=== PATIENT | female | born 1975 | race Caucasian/White ===

== ENCOUNTER 2018-05-08 01:45 | Outpatient (CLI) | payer BC, SELFPAY ==
--- NOTE | 2018-05-08 09:48 | DI.US_ITS ---
SYMPTOMS/DIAGNOSIS: HEAVY BLEEDING, DYSFUNCTIONAL UTERINE BLEEDING, N93.8 PELVIC ULTRASOUND: A transabdominal and transvaginal examination was carried out. The uterus measures 10.2 cm in length, 6.3 cm in height and 6.6 cm in width with an endometrial stripe thickness of 10-20 mm. Endometrial heterogeneity is demonstrated. The ovaries were not visualized on either the transvaginal or transabdominal examination. Note is made of a number of small Nabothian cysts which could represent a small cervical fibroid. There is no evidence of free fluid in the pelvis or a mass. SUMMARY: The endometrial stripe is somewhat thickened at 10-20 mm and is heterogeneous as noted above. Given the patient's clinical status further assessment with hysteroscopy could be considered. The examination is otherwise unremarkable.
== END 2018-05-08 02:05 ==
PROVIDERS: PCP Nurse Practitioner Family; Visit Provider Nurse Practitioner Family
DX: N93.8 Other specified abnormal uterine and vaginal bleeding (principal); R93.89 Abnormal findings on diagnostic imaging of other specified body structures; N88.8 Other specified noninflammatory disorders of cervix uteri
CPT/HCPCS: 76830; 76856

== ENCOUNTER 2018-05-10 11:04 | Outpatient (REF) | payer BC, SELFPAY ==
--- NOTE | 2018-05-10 10:30 | ENDOMET_PTH ---
PATIENT: Lety Charles LOC: [facility] U#:[id number] AGE/SX: 42/F ROOM: RE05/10/[address]: Aimee Ambriz MD : 1975 BED: DIS: 05/10/2018 SPEC #: [id number] RECD: 05/10/18 12:56 STATUS: NAHUM REQ #: [id number] SEJAL: 05/10/18 10:[address]: Aimee Ambriz DEPT: Surgical Specimen RECD BY: Glenis Foster ENTERED: 05/10/18 12:57 SP TYPE: Endomet OTHR DR: HEATHER Parmar Tissues: 1 - ENDOMETRIUM BX/MOISESETTE Procedures: GROSS AND MICRO LEVEL 4 Comments: [id number]
== END 2018-05-10 11:24 ==
LOC: LBN 11:04
PROVIDERS: PCP Nurse Practitioner Family; Referring Provider Nurse Practitioner Family; Visit Provider Obstetrics & Gynecology
DX: N83.8 Other noninflammatory disorders of ovary, fallopian tube and broad ligament (principal); N93.8 Other specified abnormal uterine and vaginal bleeding
CPT/HCPCS: 88305

== ENCOUNTER 2018-11-21 14:42 | Outpatient (CLI) | payer BC, SELFPAY ==
[2018-11-21 15:12] LABS: HCT 39.5 % (36.0-46.0); HGB 13.2 g/dL (12.0-15.5)
== END 2018-11-21 15:02 ==
PROVIDERS: PCP Nurse Practitioner Family; Visit Provider Obstetrics & Gynecology
DX: N92.0 Excessive and frequent menstruation with regular cycle (principal); I10 Essential (primary) hypertension; K21.9 Gastro-esophageal reflux disease without esophagitis; E66.9 Obesity, unspecified; Z01.812 Encounter for preprocedural laboratory examination; Z01.818 Encounter for other preprocedural examination
CPT/HCPCS: 36415; 86850; 86900; 86901; 85014; 85018

== ENCOUNTER 2018-11-28 06:09 | Day surgery (SDC) | payer BC, SELFPAY ==
[2018-11-28 06:22] VITALS: BP 128/82; PULSE 73; RESP 18; TEMP 36.3; O2SAT 97
[2018-11-28] MEDS: Lactated Ringers 1,000 ML 125 ML IV ×2 (07:01→07:55)
--- NOTE | 2018-11-28 07:22 | W.PM.HP.N ---
Date of service: 11/28/18 Time of Service: 07:23 Assessment and Plan (1) Menorrhagia with regular cycle: Current visit: No Status: Chronic 43 yo G3 experiencing menorraghia and has failed medical therapy Her options have been discussed including medical and surgical options Novasure Enometrial ablation procedure has been explained, R/B/A were discussed consent signed all questions asked and answered History of Present Illness Chief Complaint: menorraghia Narrative: 43 yo complains of heavy menstrual periods. Has triaaled Mirena IUD and progesterone with insufficient improvement in heaviness of bleeding. Options both medical and surgical have been discussed with her and she would prefer to proceed with Novasure Endometrial Ablation. Review of Systems Review of Systems All systems reviewed & are unremarkable except as noted in HPI and below PFSH Medical History Essential hypertension (Chronic 12/15/17) Hyperlipidemia (Chronic) Morbidly obese (Chronic) Menorrhagia with regular cycle (Chronic 12/15/17) GERD (gastroesophageal reflux disease) (Chronic) Allergic rhinitis (Chronic 09/07/15) Lichen sclerosus et atrophicus (Inactive 03/15/13) GERD (gastroesophageal reflux disease) (Chronic) Basal cell carcinoma (Resolved) Iron deficiency anemia due to chronic blood loss (Resolved 12/15/17) Surgical History section Cholecystectomy (~2006) Ligation of fallopian tube (~2002) Family History Mother Fibrocystic disease of breast Diabetes Essential hypertension Basal cell carcinoma Father Diabetes Essential hypertension Depression Brother Asthma Maternal Grandfather Diabetes Essential hypertension Skin cancer Maternal Grandmother Diabetes Essential hypertension Melanoma Brother No problems noted. Paternal Grandfather No problems noted. Paternal Grandmother Melanoma Cancer Son Asthma Depression Brother No problems noted. Son No problems noted. 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 Pets and animals: Yes Pets and animals: cat(s) and dog(s) What type of physical activity do you participate in: walking Duration: > 90 minutes/day Frequency: daily [place]/Holiness: Bahai Special en[place] needs: No Do you feel safe at home: Yes Do you feel safe in your relationship?: Yes Female Reproductive History Menstrual control method: progestin IUCD (MIRENA LOT# [id number] EXP 09/2020) History History 3 Para 2 Hx # Term Pregnancies Multiple births Hx # Pregnancies Ectopic pregnancies AB induced Hx Number of Living Children AB spontaneous Meds Home Medications Medication Instructions Recorded Confirmed Type fluticasone propionate 50 2 spray АЛЕКСАНДР DAILY PRN #15.8 gm 02/23/18 11/21/18 Rx mcg/actuation nasal spray,suspension loratadine 10 mg tablet 10 mg PO DAILY PRN #90 tab 02/23/18 11/21/18 Rx hydrochlorothiazide 25 mg tablet 25 mg PO DAILY #90 tab 04/25/18 11/21/18 Rx omeprazole 20 mg capsule,delayed 20 mg PO DAILY PRN #90 cap 08/21/18 11/28/18 Rx release multivitamin,tx-minerals 1 cap PO DAILY 11/21/18 11/28/18 History [Multi-Vitamin HP/Minerals] ibuprofen 600 mg PO PRN PRN 11/28/18 11/28/18 History Allergies Allergy/AdvReac Type Severity Reaction Status Date / Time doxycycline Allergy Intermediate Rash Verified 11/28/18 06:27 banana AdvReac Other (See Verified 11/28/18 06:27 Comment) Exam Narrative Exam Narrative: appears well no acute discomfort Resp Effort & Inspection: normal respiratory effort Auscultation: clear to auscultation bilaterally Cardio Rate: regular rate Rhythm: regular rhythm Heart Sounds: S1 normal and S2 normal GI Inspection: normal to inspection Palpation: soft External Female Exam: external appearance normal Speculum Exam - Vagina: normal appearance of the vagina Speculum Exam - Cervix: normal appearance of the cervix Bimanual Exam- Vagina & Uterus: normal bimanual exam Bimanual Exam- Adnexa, other: normal adnexae Results Last Vital Signs Temp 36.3 C L 11/28/18 06:22 Pulse 73 11/28/18 06:22 Resp 18 11/28/18 06:22 BP 128/82 11/28/18 06:22 Pulse Ox 97 11/28/18 06:22
--- NOTE | 2018-11-28 07:30 | HPE_ITS ---
Date of service: 11/28/18 Time of Service: 07:23 Assessment and Plan (1) Menorrhagia with regular cycle: Current visit: No Status: Chronic 43 yo G3 experiencing menorraghia and has failed medical therapy Her options have been discussed including medical and surgical options Novasure Enometrial ablation procedure has been explained, R/B/A were discussed consent signed all questions asked and answered History of Present Illness Chief Complaint: menorraghia Narrative: 43 yo complains of heavy menstrual p eriods. Has triaaled Mirena IUD and progesterone with insufficient improvement in heaviness of bleeding. Options both medical and surgical have been discussed with her and she would prefer to proceed with Novasure Endometrial Ablation. Review of Systems Review of Systems All systems reviewed & are unremarkable except as noted in HPI and below PFSH Medical History Essential hypertension (Chronic 12/15/17) Hyperlipidemia (Chronic) Morbidly obese (Chronic) Menorrhagia with regular cycle (Chronic 12/15/17) GERD (gastroesophageal reflux disease) (Chronic) Allergic rhinitis (Chronic 09/07/15) Lichen sclerosus et atrophicus (Inactive 03/15/13) GERD (gastroesophageal reflux disease) (Chronic) Basal cell carcinoma (Resolved) Iron deficiency anemia due to chronic blood loss (Resolved 12/15/17) Surgical History section Cholecystectomy (~2006) Ligation of fallopian tube (~2002) Family History Mother Fibrocystic disease of breast Diabetes Essential hypertension Basal cell carcinoma Father Diabetes Essential hypertension Depression Brother Asthma Maternal Grandfather Diabetes Essential hypertension Skin cancer Maternal Grandmother Diabetes Essential hypertension Melanoma Brother No problems noted. Paternal Grandfather No problems noted. Paternal Grandmother Melanoma Cancer Son Asthma Depression Brother No problems noted. Son No problems noted. 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 Pets and animals: Yes Pets and animals: cat(s) and dog(s) What type of physical activity do you participate in: walking Duration: > 90 minutes/day Frequency: daily [place]/Alevism: Baptist Special en[place] needs: No Do you feel safe at home: Yes Do you feel safe in your relationship?: Yes Female Reproductive History Menstrual control method: progestin IUCD (MIRENA LOT# [id number] EXP 09/2020) History History 3 Para 2 Hx # Term Pregnancies Multiple births Hx # Pregnancies Ectopic pregnancies AB induced Hx Number of Living Children AB spontaneous Meds Home Medications Medication Instructions Recorded Confirmed Type fluticasone propionate 50 2 spray АЛЕКСАНДР DAILY PRN #15.8 gm 02/23/18 11/21/18 Rx mcg/actuation nasal spray,suspension loratadine 10 mg tablet 10 mg PO DAILY PRN #90 tab 02/23/18 11/21/18 Rx hydrochlorothiazide 25 mg tablet 25 mg PO DAILY #90 tab 04/25/18 11/21/18 Rx omeprazole 20 mg capsule,delayed 20 mg PO DAILY PRN #90 cap 08/21/18 11/28/18 Rx release multivitamin,tx-minerals 1 cap PO DAILY 11/21/18 11/28/18 History [Multi-Vitamin HP/Minerals] ibuprofen 600 mg PO PRN PRN 11/28/18 11/28/18 History Allergies Allergy/AdvReac Type Severity Reaction Status Date / Time doxycycline Allergy Intermediate Rash Verified 11/28/18 06:27 banana AdvReac Other (See Verified 11/28/18 06:27 Comment) Exam Narrative Exam Narrative: appears well no acute discomfort Resp Effort & Inspection: normal respiratory effort Auscultation: clear to auscultation bilaterally Cardio Rate: regular rate Rhythm: regular rhythm Heart Sounds: S1 normal and S2 normal GI Inspection: normal to inspection Palpation: soft External Female Exam: external appearance normal Speculum Exam - Vagina: normal appearance of the vagina Speculum Exam - Cervix: normal appearance of the cervix Bimanual Exam- Vagina & Uterus: normal bimanual exam Bimanual Exam- Adnexa, other: normal adnexae Results Last Vital Signs Temp 36.3 C L 11/28/18 06:22 Pulse 73 11/28/18 06:22 Resp 18 11/28/18 06:22 BP 128/82 11/28/18 06:22 Pulse Ox 97 11/28/18 06:22
[2018-11-28] MEDS: Bupivacaine 0.5% Pres-Free 30 ML VIAL (07:57)
[2018-11-28] MEDS: Silver Nitrate Stick 1 EACH (08:16)
[2018-11-28 09:18] VITALS: BP 115/66; PULSE 68; RESP 16; TEMP 36; O2SAT 93
--- NOTE | 2018-11-28 09:37 | ROE_ITS ---
REPORT OF OPERATIVE PROCEDURE DATE OF PROCEDURE November 28, 2018 PREOPERATIVE DIAGNOSIS Menorrhagia. POSTOPERATIVE DIAGNOSIS Menorrhagia. PROCEDURE NovaSure Endometrial ablation. SURGEON Preethi Carson M.D. ANESTHESIA General. COMPLICATIONS None. ESTIMATED BLOOD LOSS Less than 10 cc FLUID Per Anesthesia records. FINDINGS Uterine sounding length 11 centimeters. Cervical length 5 centimeters. Cavity length 6 centimeters. C avity width 4.5 centimeters. POWER Power 149 TIME OF ABLATION 120 Seconds. PROCEDURE DESCRIPTION The patient was taken to the Operating Room, where she was properly identified. She was then placed o n the operating table in the dorsal supine position. General Anesthesia was induced without difficult y. She was then placed in the dorsal lithotomy position, prepped and draped in a normal sterile [facility] ion. A formal time-out procedure was performed, confirming the patient and procedure. She had her SCD s boots on and she emptied her bladder prior to the procedure. A bivalved speculum was placed. The cervix was visualized and grasped on the anterior lip with a sin gle-tooth tenaculum and was dilated with the Cavazos dilators. After uterine sounding length, cavity le ngth and cervical length were measured as above. It was difficult to pass the NovaSure endometrial apparatus into the uterine cavity due to a sharp an teverted uterus, therefore the Megan dilators were used to re-dilate the cervix. This allowed a strai ghter entry by the NovaSure endometrial apparatus into the uterine cavity without difficulty. The apparatus was then deployed, uterine width was measured at 4.5 cm. A uterine cavity assessment wa s performed and was adequate. A 1 minute 20 second endometrial ablation was then performed. Sponge, lap, needle and instrument count were correct. All the equipment was removed from the cervix and uterus. A small amount of Silver nitrate was applied to the cervix to achieve hemostasis. She wa s taken to the Recovery Room in stable condition. CC: [facility]
== END 2018-11-28 09:30 | disposition home or self-care (01) ==
PROVIDERS: PCP Nurse Practitioner Family; Visit Provider Obstetrics & Gynecology
PROC: (CPT 58353; principal; 2018-11-28 07:30)
DX: N92.0 Excessive and frequent menstruation with regular cycle (principal); N85.4 Malposition of uterus
CPT/HCPCS: 58353; 81025; NC; J1100; J2250; J2405; J3010

== ENCOUNTER 2019-02-25 07:00 | Outpatient (CLI) | payer BC, SELFPAY ==
[2019-02-25 12:40] LABS: Anion Gap 8.4 mmol/L (3-11); BUN 12 mg/dL (7-18); CO2 30.6 mmol/L (21.0-32.0); CREATININE 0.96 mg/dL (0.55-1.02); Calcium 9.7 mg/dL (8.5-10.1); Calculated LDL 87 mg/dL; Chloride 101 mmol/L (98-107); Cholesterol 180 mg/dL (50-200); Glucose 94 mg/dL (70-100); HDL Cholesterol 50 mg/dL (40-60); Potassium 3.9 mmol/L (3.5-5.1); Sodium 140 mmol/L (136-145); Triglyceride 217 mg/dL (30-150)
[2019-02-25 13:01] LABS: FREE T4 0.99 ng/dL (0.76-1.46)
== END 2019-02-25 07:20 ==
PROVIDERS: PCP Nurse Practitioner Family; Visit Provider Nurse Practitioner Family
DX: E78.5 Hyperlipidemia, unspecified (principal); N92.0 Excessive and frequent menstruation with regular cycle
CPT/HCPCS: 36415; 80048; 80061; 83036; 84439; 84443

== ENCOUNTER 2019-03-21 01:37 | Outpatient (CLI) | payer BC, SELFPAY ==
--- NOTE | 2019-03-21 11:58 | DI.MAMMO_ITS ---
EXAM: MG MAMMO SCREENING CLINICAL HISTORY: screening, Z12.39 TECHNIQUE: Mammograms were interpreted according to the usual protocol including computer analysis w meevl CAD system, tomosynthesis and C-view imaging. COMPARISON: 2012 FINDINGS: The breasts are composed of heterogeneously dense tissue, which may obscure small masses, breast dens ity category C. No suspicious masses or microcalcifications are seen. There has been no significant c hange when compared with the prior examinations. IMPRESSION: Category 1, negative mammogram. Yearly screening mammography is recommended. BI-RADS Cat 1 - Negative Breast Density - Category C - Heterogeneously dense
== END 2019-03-21 01:57 ==
PROVIDERS: PCP Nurse Practitioner Family; Visit Provider Nurse Practitioner Family
DX: Z12.31 Encounter for screening mammogram for malignant neoplasm of breast (principal)
CPT/HCPCS: 77063; 77067

== ENCOUNTER 2019-12-18 09:23 | Outpatient (CLI) | payer OTHER, SELFPAY ==
--- NOTE | 2019-12-18 09:00 | DI.RAD_ITS ---
EXAM: XR KNEE LT 3V AP,LAT,JUSTIN CLINICAL HISTORY: left knee pain TECHNIQUE: 2D digital imaging was performed. COMPARISON: No exams were available for comparison FINDINGS: The joint spaces are well maintained. There is spurring from the lateral patellofemoral joint. The tibial tubercle is prominent. No joint effusion is seen. IMPRESSION: Mild degenerative changes, greatest of the lateral patellofemoral joint.
== END 2019-12-18 09:43 ==
PROVIDERS: PCP Nurse Practitioner Family; Referring Provider Nurse Practitioner Family; Visit Provider Physician Assistant Surgical
DX: M25.562 Pain in left knee (principal); M17.12 Unilateral primary osteoarthritis, left knee
CPT/HCPCS: 73562

== ENCOUNTER 2020-01-13 00:39 | Outpatient (CLI) | payer OTHER, SELFPAY ==
--- NOTE | 2020-01-13 07:00 | DI.MRI_ITS ---
EXAM: MR LOWER JOINT LT WO CLINICAL HISTORY: LT KNEE PAIN,INTERNAL DERANGEMENT,M25.562,M23.92. TECHNIQUE: Multiplanar multisequence MRI was performed. COMPARISON: No exams were available for comparison FINDINGS: MR examination knee was performed according to the usual protocol. There is a small nonspecific knee joint effusion. Mild marginal osteophyte formation noted at all 3 joints of the knee. There is an apparent small ganglion cyst seen posteriorly adjacent to the popliteus mechanism which a ppears to contain tiny loose body. Extensor mechanism and patellofemoral joint: Normal appearance of the patellar and quadriceps tendons . Unremarkable appearance of the infrapatellar and suprapatellar fat pads. There is irregular cartilage thinning and/or focal tear at the patellar apex and there is marked daniela cular cartilage thinning of the lateral patellar facet. Slight trochlear irregular cartilage thinnin g associated with the patellar apex. Mildly abnormal subchondral signal in lateral patellar facet. The medial and lateral retinacula appear intact. Minimal prepatellar soft tissue edema and fluid col lection in the prepatellar bursa. Medial tibiofemoral joint: There is irregular cartilage thinning of the posteromedial aspect of the m edial femoral condyle and there is diffuse thinning of the remainder of the medial condylar articular cartilage and medial tibial articular cartilage. There is a Sola attachment tear of the posterior h orn of the medial meniscus which is nondisplaced. No significant medial collateral ligament injury s een. Small subchondral cyst noted posteriorly in medial central aspect of the tibia. Lateral tibiofemoral joint: Slight diffuse articular cartilage thinning. No lateral meniscal tear. No significant lateral collateral ligament or posterolateral corner injury. Small apparent posterior ganglion cyst with loose body seen projected adjacent to fibular head. Menisci: No evidence tear of the menisci or attachments. IMPRESSION: Degenerative articular cartilage changes involving patella, particularly at the apex and lateral face t, and the medial posterior aspect of the medial femoral condyle. Sola attachment posterior horn medial meniscal tear, nondisplaced. DATA REPOSITORY:
== END 2020-01-13 00:59 ==
PROVIDERS: PCP Nurse Practitioner Family; Visit Provider Orthopaedic Surgery
DX: M17.12 Unilateral primary osteoarthritis, left knee (principal); S83.242A Other tear of medial meniscus, current injury, left knee, initial encounter; M25.462 Effusion, left knee
CPT/HCPCS: 73721

== ENCOUNTER 2020-02-07 07:41 | Outpatient (CLI) | payer BC, SELFPAY ==
[2020-02-08 17:27] LABS: COVID-19 RT-PCR Result NEGATIVE (Negative)
== END 2020-02-07 08:01 ==
PROVIDERS: PCP Nurse Practitioner Family; Visit Provider Orthopaedic Surgery
DX: Z11.59 Encounter for screening for other viral diseases (principal); Z01.818 Encounter for other preprocedural examination
CPT/HCPCS: U0003

== ENCOUNTER 2020-02-10 06:10 | Day surgery (SDC) | payer OTHER, SELFPAY ==
[2020-02-10] VITALS (7 sets, daily range): BP systolic 104–150; BP diastolic 59–98; PULSE 86–94; RESP 15–23; TEMP 36.4–37.1; O2SAT 92–96
[2020-02-10] MEDS: Lactated Ringers 1,000 ML 80 ML IV (06:59)
[2020-02-10] MEDS: ceFAZolin 2 GM/50 ML BAG IVPB (07:34)
--- NOTE | 2020-02-10 08:47 | PDOC.DSDIS_ITS ---
Discharge Plan Disposition Patient Disposition: HOME Condition: Good Discharge Details Reason For Visit: ARTHROSCOPY L KNEE Attending Provider: Mason Whyte Primary Care Provider: Mavis Camp Home Meds and New Rx's Prescriptions: New ibuprofen 600 mg tablet 600 mg PO TID Qty: 30 RF: 0 hydrocodone-acetaminophen 5-325 mg tablet 1 tab PO Q6H PRN (Reason: pain) Qty: 10 RF: 0 Continued cetirizine 10 mg tablet 10 mg PO DAILY Qty: 90 RF: 4 mometasone 50 mcg/actuation spray,non-aerosol 2 spray АЛЕКСАНДР DAILY Qty: 17 RF: 4 zinc 50 mg tablet 50 mg PO DAILY RF: 0 cholecalciferol (vitamin D3) 50 mcg (2,000 unit) tablet 50 mcg PO DAILY RF: 0 omeprazole 20 mg capsule,delayed release(DR/EC) 20 mg PO DAILY Qty: 90 RF: 4 hydrochlorothiazide 25 mg tablet 25 mg PO DAILY Qty: 90 RF: 4 Multi-Vitamin HP/Minerals Capsule 1 cap PO DAILY RF: 0 Discontinued ibuprofen 200 mg Tablet 600 mg PO PRN PRNRF: 0 Discharge Instructions Additional Instructions: Crutches to walk. May put as much weight on L leg as your pain allows. Discontinue crutches when you can step on L leg with no pain. Elevate L leg on 1-2 pillows as much as possible for next 48 hours. Apply cryocuff to L knee continuously overnite. Tomorrow, start to use 4 times/day for 1 hour each time. Keep dressings dry and in place for 48 hours. After 48 hours, may remove dressings, shower, and get incisions wet. Leave incisions uncovered when they are dry and sealed. Begin outpatient physical therapy for rehab of L knee post-arthroscopic limited chondroplasty of patella and medial femoral condyle. Follow up with in 2 weeks. Take ibuprofen 3 times/day for 10 days to decrease swelling and inflammation. Take hydrocodone for breakthru pain, if needed. Referrals: Mason Whyte MD [ [facility] STAFF PHYSICIAN] - (f/u in 2 weeks) Equipment/Supplies: Partial Weight Bearing Crutches Activity:: Activity as Tolerated Remove Dressings/Wound Care:: 48 hours Shower/Bathe:: 48 hours Diet:: As Tolerated Discharge Orders Discharge Orders: Discharge Order (Routine); Ordered 02/10/20 Ordered By: Mason Whyte DS: Diagnosis Discharge Diagnosis (1) Internal derangement of left knee: Status: Acute
[2020-02-10] MEDS: HYDROmorphone 2 MG/ML VIAL IVP (09:22)
--- NOTE | 2020-02-10 13:32 | ROE_ITS ---
Date of service: 02/10/20 Time of Service: 08:00 Operative Note Operative Note DATE OF PROCEDURE: 02/10/20 PRE-OP DIAGNOSIS: Internal derangement left knee POST-OP DIAGNOSIS: same PROCEDURE: Arthroscopy left knee with limited chondroplasty medial femoral condyle, patella, and trochlea of the femur. SURGEON: Mason Whyte ANESTHESIA: GETA PATHOLOGY: none sent COMPLICATIONS: None Patient was transported to: PACU Patient's condition: stable Indications: The 44-year-old white female who has had continued pain with squatting and kneeling activities since she injured her knee several months ago. She was playing football in the snow planted her foot and had a twisting injury. She has had no improvement in her symptoms since that time. She is failed to respond to anti-inflammatory medications, physical therapy and time. MRI scan was obtained which suggested a possible meniscal injury and a chondral defect in the patellofemoral joint. Because of the failure to improve with conservative treatment over the course of 7 months, arthroscopic examination of her left knee was recommended to obtain a definitive diagnosis and provide a basis for definitive treatment to alleviate her symptoms. Risk and complication of procedure explained patient detail preoperatively. She was to proceed soon as possible. Procedure Description: Patient taken the operating room on 02/10/2020. She is placed about operative table and a general anesthetic was administered. The left thigh was placed in the arthroscopic leg mahan and the left knee was pr epped and draped free in usual sterile fashion. She received 2 g of Ancef IV prior to any incisions. The knee was inflated with a 50 cc of normal saline solution. Arthroscopic portals were established. The knee was then inflated with a arthroscopy pump and routine. Examination proceeded. Intraoperative photographs were obtained to document findings. Upon entering the medial compartment appeared the medial meniscus was not damaged. She did have some grade II chondromalacia on the medial femoral condyle, weightbearing portion. Through an anteromedial portal a right angle probe was introduced in the medial compartment. The medial meniscus was thoroughly probed under direct vision. No occult tears were identified. The area of chondromalacia was probed with a right angle probe was found to be partial-thickness. It was mostly grade 2. The 90 degree ArthroCare high radiofrequency electrocautery device was then used to debride the loose articular cartilage down to stable cartilage. Intercondylar notch showed intact anterior and posterior cruciate ligaments. Lateral compartment showed a normal lateral meniscus that was thoroughly stable to probing on direct vision. Articular cartilage in lateral compartment was normal and undamaged. Medial gutter was somewhat obscured by soft tissue and some hypertrophic synovium. He however to fix electrocautery wand was used to debride the hypertrophic synovium. There was a medial patella plica present did not appear to be pathologic. The plica was resected with a high radiofrequency electrocautery wand, restoring the normal volume in the medial gutter. Suprapatellar pouch was mostly clear with some mild synovial hypertrophy present. 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 There also was some grade II-III chondromalacia of the trochlea. Using a hybrid fix electrocautery wand the loose articular cartilage on the patella was debrided to stable margins. I then debrided the loose articular cartilage from the trochlea back to stable margins as well. Patella tracking look good. The knee was then thoroughly irrigated with normal saline solution using arthroscopy pump. Was irrigated till the outflow was clear. All instruments removed from the knee. Arthroscopy portals were infiltrated 0.5% Marcaine with epinephrine solution and approximated with interrupted 4 nylon sutures. Through a suprapatellar puncture I instilled into the left knee 20 cc of 0.5% Marcaine with epinephrine solution for postoperative analgesia. Incisions were dressed with Xeroform gauze sterile gauze 4 x 4's ABD pads and wrapped with 6 inch Vinnie bandages for light pressure dressing. Patient tolerated procedure well her anesthesia was reversed without complication. She was discharged to recovery room in good condition. Patient was later discharged home from the surgery unit and fully recovered from her general anesthesia. She is given instructions to use crutches to walk weightbearing as tolerated to the left leg. She may discontinue the crutches which she can step on her left leg without pain. She is instructed to try to elevate her left leg on 1 2 pillows much as possible for the next 48 hours. She is to keep her dressings dry for 48 hours. After 48 hours she can remove her dressings, shower and get her incisions wet. She may leave her incisions uncovered when they are dry and sealed. She is given a prescription of ibuprofen 600 mg p.o. 3 times daily for 10 days to help decrease swelling and inflammation. She is given a prescription of hydrocodone with APAP 5/325, 1 tablet p.o. every 6 hours as needed for breakthrough pain. She is referred to physical therapy for rehab of her left knee post-arthroscopic limited chondroplasty later this week. She should follow-up with Dr. Whyte in 2 weeks.
== END 2020-02-10 11:23 | disposition home or self-care (01) ==
PROVIDERS: PCP Nurse Practitioner Family; Visit Provider Orthopaedic Surgery
PROC: (CPT 29870; principal; 2020-02-10 07:30)
DX: M94.262 Chondromalacia, left knee (principal); M22.42 Chondromalacia patellae, left knee; M67.52 Plica syndrome, left knee
CPT/HCPCS: 29877; 81025; E0114; J0690; J1100; J1885; J2001; J2250; J2405

== ENCOUNTER 2020-05-21 06:17 | Emergency (ER) | payer BC, SELFPAY ==
[2020-05-21 06:21] VITALS: BP 141/96; PULSE 102; RESP 20; TEMP 36.6; O2SAT 97
--- NOTE | 2020-05-21 06:27 | ED.GENADUL_ITS ---
Discharge Plan Disposition Patient Disposition: HOME Condition: Stable Discharge Details Clinical Impression: Acute left flank pain, Hepatic steatosis Primary Care Provider: Mavis Camp ED Provider: Yusuf Roca Home Meds and New Rx's Prescriptions: Continued losartan 25 mg tablet 25 mg PO DAILY Qty: 90 RF: 4 hydrochlorothiazide 25 mg tablet 25 mg PO DAILY Qty: 90 RF: 4 omeprazole 20 mg capsule,delayed release(DR/EC) 20 mg PO DAILY Qty: 90 RF: 4 cetirizine 10 mg tablet 10 mg PO DAILY Qty: 90 RF: 4 cholecalciferol (vitamin D3) 50 mcg (2,000 unit) tablet 50 mcg PO DAILY RF: 0 mometasone 50 mcg/actuation spray,non-aerosol 2 spray АЛЕКСАНДР DAILY Qty: 17 RF: 4 Multi-Vitamin HP/Minerals Capsule 1 cap PO DAILY RF: 0 ibuprofen 600 mg tablet 600 mg PO TID Qty: 30 RF: 0 Discharge Instructions Instructions: Non-Alcoholic Fatty Liver Disease (ED), Abdominal Pain (ED) Additional Instructions: Your CT imaging revealed streaking of the mesentery of your upper abdomen and hepatic steatosis (fatty liver). Nonspecific inflammatory blood level (CRP) was elevated. Please follow-up with your primary care physician and rheumatology - . Call for an appointment. Return to the ER immediately for any worsening or new concerning symptoms. Referrals: Mavis Camp, KENIA [Primary Care Provider] - Discharge Data Discharge Date/Time-TO BE ENTERED AT DEPARTURE: 05/21/20 11:10 Medical Decision Making <Tesfaye Hatch DO - Last Filed: 05/21/20 07:58> 44-year-old female with a past medical history of cholecystectomy, C- section, GERD, presents today for evaluation of left flank pain. Pain is been present for the last 3 days, slightly improved with Tylenol and Motrin but it is not otherwise gone away. She does note some difficulty urinating and admits to slight worsening of her pain with urination. She denies any hematuria. She denies any radiation to the groin. Symptoms are not changed by food. She denies vomiting or diarrhea. She denies fever or chills. No other complaints at this time. No history of kidney stones. She did see Dr. Mosley yesterday, she was scheduled for a UA and CT scan today, however the pain increased and she came to the ER for further assessment. Physical exam demonstrates a nontender abdomen, no reproducibility of pain on the left flank with percussion. Symptoms are concerning for urolithiasis, we will expedite the CT scan and UA. Will treat pain with morphine at this time as she did take ibuprofen 1 hour ago. 7:50 AM Patient is feeling much better, CBC and comprehensive metabolic panel are normal, renal function unremarkable. Pending UA results at this time. CT scan results have returned, and there is no evidence of acute etiology noted per radiology, no signs of active kidney stone, there is a small phlebolith near the distal left ureter, there is some proximal left nephrolithiasis, but no ureteral calculus. There is an atypical retroperitoneal inflammatory component noted at the origin of the celiac trunk and superior mesenteric artery, but no associated lymphadenopathy is noted. No other significant abnormality. Uncertain as to what the etiology of this is, however differential does certainly lend to notably benign process versus less likely vasculitis. We will add lipase ESR and CRP. Patient feeling much better at this time, and she definitely appears stable. Case will be signed out to my colleague Dr. Yusuf Roca for follow-up on ESR CRP and lipase, however that being said unless there is a significant abnormality noted I do feel that the patient is stable for discharge with close follow-up with PCP on an outpatient basis. Clinically the patient continues to demonstrate a notably stable nontender nonsurgical abdomen clinically inconsistent with ischemic gut or mesenteric ischemia. FINDINGS: Lungs: Minimal dependent basilar atelectasis. Liver: Hepatomegaly. Fatty Infiltration. Liver incompletely visualized. No mass. Gallbladder and bile ducts: Surgical clips from prior cholecystectomy. Pancreas: No enlargement. No mass. No ductal dilatation. Spleen: Normal size. No mass. Adrenal glands: No mass. No enlargement. No hemorrhage. Kidneys and ureters: Nonobstructive left nephrolithiasis. No worrisome mass. No hydronephrosis. No hydroureter or ureterolithiasis. Stomach and bowel: No significant diverticulosis or diverticulitis. No colitis. Gastric wall thickening, lack of distention versus gastritis. No outlet obstruction. Small bowel normal without mechanical obstruction or pneumatosis. Appendix: Normal appearance without acute inflammation. Intraperitoneal space: No free intraperitoneal air demonstrated. No significant free fluid demonstrated. Vasculature: Aorta normal caliber without aneurysm, dissection or disruption. Mild nonspecific infiltration adjacent to the origin of the celiac axis and celiac trunk and superior mesenteric artery. Nonspecific finding. No associated lymphadenopathy, fluid collection or mass. Lymph nodes: No significant lymphadenopathy demonstrated. Urinary bladder: No wall thickening, mass or calculus. Reproductive: Unremarkable uterus. Ovarian follicular changes. No dominant adnexal mass. Bones/joints: Mild degenerative changes noted throughout the spine. Soft tissues: Small uncomplicated fat containing umbilical hernia. IMPRESSION: 1. No acute findings within the abdomen or pelvis. 2. Left nephrolithiasis. No acute obstructive uropathy on either side. 3. Nonspecific retroperitoneal infiltration/inflammation near the origin of the celiac trunk and superior mesenteric artery. No associated lymphadenopathy, fluid collection or mass. 4. Hepatomegaly with diffuse fatty infiltration. Thank you for allowing us to participate in the care of your patient. Dictated and Authenticated by: Raciel Oneill MD 05/21/2020 7:37 AM Eastern Time ([place] & [place]) <Yusuf Roca MD - Last Filed: 05/22/20 08:34> Care signed out by Dr. Hatch with plan to follow-up on labs and reassess patient for disposition. Labs reviewed and CRP elevated. Normal ESR normal lipase. Initial CT imaging reviewed and radiologist recommended additional contrast-enhanced study which I feel is appropriate at this time to rule out potential vascular abnormality. CTA of the abdomen pelvis with arterial and venous phase interpreted by radiology:IMPRESSION: 1. The previously described streaking anterior to the upper aorta is again noted but is not associated with thrombosis nor occlusion of the adjacent celiac artery and superior mesenteric artery nor of the IVC and nearby preaortic left renal vein. In addition, the superior mesenteric vein, portal vein confluence, and portal vein are demonstrated to be nicely patent on this study. There is no adenopathy. 2. Given the streaking I recommend pancreatic blood work, although the pancreas itself appears nearby but unremarkable. 3. Hepatomegaly and hepatic steatosis again noted. 4. Gallbladder is again noted be surgically absent. The biliary tree is not dilated. Results were reviewed with the patient. Patient is remained stable. Plan will be for outpatient follow-up with rheumatology given CT findings and elevated CRP. I also encouraged her to follow-up with her primary care physician and to call today to arrange appointments. Patient was instructed to return immediately for any worsening or new concerning symptoms. Lab Data Lab results reviewed: Yes I reviewed the patient's lab results. Labs: Laboratory Tests Range/Units 05/21/20 05/21/20 05/21/20 06:35 06:35 06:35 WBC (4.4-10.8) 10^3/uL 7.80 RBC (3.93-5.22) 10^6/uL 4.97 Hgb (11.2-15.7) g/dL 14.5 Hct (36.0-46.0) % 41.7 MCV (80-95) fL 83.9 MCH (27.0-33.0) pg 29.2 MCHC (32.0-36.0) % 34.8 RDW (11.7-14.6) % 12.2 Plt Count (130-400) 10^3/uL 284 MPV (8.0-11.0) fL 10.7 Immature Gran % 0.5 Neutrophils % 67.7 Lymphocytes % 22.8 Monocytes % 6.3 Eosinophils % 2.2 Basophils % 0.5 Nucleated RBC % % 0 Absolute Neutrophils (1.2-6.7) 10^3/uL 5.28 Absolute Lymphocytes (1.2-3.4) 10^3/uL 1.78 Absolute Monocytes (0.1-0.8) 10^3/uL 0.49 Absolute Eosinophils (0.0-0.7) 10^3/uL 0.17 Absolute Basophils (0.0-0.2) 10^3/uL 0.04 ESR (0-20) mm/hr Sodium (136-145) mmol/L 136 Potassium (3.5-5.1) mmol/L 3.4 L Chloride (98-107) mmol/L 99 Carbon Dioxide (21.0-32.0) mmol/L 27.6 Anion Gap (3-11) mmol/L 9.4 BUN (7-18) mg/dL 11 Creatinine (0.55-1.02) mg/dL 0.98 Estimated GFR/1.73 m2 (mL/min/1.73m2) >= 60.00 Glucose (74-106) mg/dL 144 H Calcium (8.5-10.1) mg/dL 9.4 Total Bilirubin (0.2-1.0) mg/dL 0.6 AST (15-37) U/L 22 ALT (14-59) U/L 42 Alkaline Phosphatase (46-116) U/L 84 C-Reactive Protein (0.0-0.3) mg/dL Total Protein (6.4-8.2) g/dL 8.2 Albumin (3.4-5.0) g/dL 3.9 Lipase (73-393) U/L Serum HCG, Qual Negative Urine Color (Yellow) Urine Clarity (Clear) Urine pH (5-8) Ur Specific [place] (1.005-1.025) Urine Protein (Negative) mg/dL Urine Ketones (Negative) mg/dL Urine Blood (Negative) Urine Nitrite (Negative) Urine Bilirubin (Negative) Urine Urobilinogen (Up TO 0.2) EU/dL Ur Leukocyte Esterase (Negative) Urine RBC (0-2) HPF Urine WBC (0-5) HPF Ur Epithelial Cells (Negative) HPF Urine Crystals (Negative) HPF Urine Bacteria (Negative) HPF Urine Casts (Negative) LPF Urine Mucus (Negative) Ur Culture Indicated? Urine Glucose (Negative) mg/dL Range/Units 05/21/20 05/21/20 05/21/20 06:35 06:35 07:40 WBC (4.4-10.8) 10^3/uL RBC (3.93-5.22) 10^6/uL Hgb (11.2-15.7) g/dL Hct (36.0-46.0) % MCV (80-95) fL MCH (27.0-33.0) pg MCHC (32.0-36.0) % RDW (11.7-14.6) % Plt Count (130-400) 10^3/uL MPV (8.0-11.0) fL Immature Gran % Neutrophils % Lymphocytes % Monocytes % Eosinophils % Basophils % Nucleated RBC % % Absolute Neutrophils (1.2-6.7) 10^3/uL Absolute Lymphocytes (1.2-3.4) 10^3/uL Absolute Monocytes (0.1-0.8) 10^3/uL Absolute Eosinophils (0.0-0.7) 10^3/uL Absolute Basophils (0.0-0.2) 10^3/uL ESR (0-20) mm/hr 20 Sodium (136-145) mmol/L Potassium (3.5-5.1) mmol/L Chloride (98-107) mmol/L Carbon Dioxide (21.0-32.0) mmol/L Anion Gap (3-11) mmol/L BUN (7-18) mg/dL Creatinine (0.55-1.02) mg/dL Estimated GFR/1.73 m2 (mL/min/1.73m2) Glucose (74-106) mg/dL Calcium (8.5-10.1) mg/dL Total Bilirubin (0.2-1.0) mg/dL AST (15-37) U/L ALT (14-59) U/L Alkaline Phosphatase (46-116) U/L C-Reactive Protein (0.0-0.3) mg/dL 4.35 H Total Protein (6.4-8.2) g/dL Albumin (3.4-5.0) g/dL Lipase (73-393) U/L 66 Serum HCG, Qual Urine Color (Yellow) Yellow Urine Clarity (Clear) Clear Urine pH (5-8) 6.0 Ur Specific [place] (1.005-1.025) 1.020 Urine Protein (Negative) mg/dL Negative Urine Ketones (Negative) mg/dL Negative Urine Blood (Negative) Trace-intact H Urine Nitrite (Negative) Negative Urine Bilirubin (Negative) Negative Urine Urobilinogen (Up TO 0.2) EU/dL 0.2 Ur Leukocyte Esterase (Negative) Negative Urine RBC (0-2) HPF 0-2 Urine WBC (0-5) HPF 0-2 Ur Epithelial Cells (Negative) HPF Few Urine Crystals (Negative) HPF Negative Urine Bacteria (Negative) HPF Few Urine Casts (Negative) LPF Negative Urine Mucus (Negative) Trace Ur Culture Indicated? No Urine Glucose (Negative) mg/dL Negative HPI <Tesfaye Hatch DO - Last Filed: 05/21/20 07:58> General Date/Time Provider Initiated Documentation: 05/21/20 06:20 . HPI Narrative: 44-year-old female with a past medical history of cholecystectomy, C- section, GERD, presents today for evaluation of left flank pain. Pain is been present for the last 3 days, slightly improved with Tylenol and Motrin but it is not otherwise gone away. She does note some difficulty urinating and admits to slight worsening of her pain with urination. She denies any hematuria. She denies any radiation to the groin. Symptoms are not changed by food. She denies vomiting or diarrhea. She denies fever or chills. No other complaints at this time. No history of kidney stones. She did see Dr. Mosley yesterday, she was scheduled for a UA and CT scan today, however the pain increased and she came to the ER for further assessment. Related Data Home Medications Medication Instructions Recorded Confirmed Multi-Vitamin HP/Minerals 1 cap PO DAILY 11/21/18 05/21/20 cholecalciferol (vitamin D3) 50 50 mcg PO DAILY 12/18/19 05/21/20 mcg (2,000 unit) tablet ibuprofen 600 mg PO TID #30 tab 02/10/20 05/21/20 mometasone 50 mcg/actuation nasal 2 spray АЛЕКСАНДР DAILY #17 gm 03/16/20 05/21/20 spray losartan 25 mg tablet 25 mg PO DAILY #90 tab 05/05/20 05/21/20 cetirizine 10 mg tablet 10 mg PO DAILY #90 tab 05/06/20 05/21/20 hydrochlorothiazide 25 mg tablet 25 mg PO DAILY #90 tab 05/06/20 05/21/20 omeprazole 20 mg capsule,delayed 20 mg PO DAILY #90 cap 05/06/20 05/21/20 release Previous Rx's Medication Instructions Recorded ibuprofen 600 mg PO TID #30 tab 02/10/20 mometasone 50 mcg/actuation nasal 2 spray АЛЕКСАНДР DAILY #17 gm 03/16/20 spray losartan 25 mg tablet 25 mg PO DAILY #90 tab 05/05/20 cetirizine 10 mg tablet 10 mg PO DAILY #90 tab 05/06/20 hydrochlorothiazide 25 mg tablet 25 mg PO DAILY #90 tab 05/06/20 omeprazole 20 mg capsule,delayed 20 mg PO DAILY #90 cap 05/06/20 release Allergies Allergy/AdvReac Type Severity Reaction Status Date / Time doxycycline Allergy Intermediate Rash Verified 05/04/20 09:58 banana AdvReac Other (See Verified 05/04/20 09:58 Comment) General Stated Complaint: FlankPain ROSS: 4 Review of Systems <Tesfaye Hatch DO - Last Filed: 05/21/20 07:58> All systems reviewed & are unremarkable except as noted in HPI and below PFSH <Tesfaye Hatch DO - Last Filed: 05/21/20 07:58> Medical History Allergic rhinitis Basal cell carcinoma Right Cheek Essential hypertension Flank pain GERD (gastroesophageal reflux disease) Hyperlipidemia Iron deficiency anemia due to chronic blood loss Menorrhagia with regular cycle Obesity Prediabetes Surgical History History of bilateral tubal ligation (05/11/03) History of section (05/11/03) 04/16/94 and 05/11/03 S/P endometrial ablation (11/28/18) S/P left knee arthroscopy (02/10/20) Status post cholecystectomy (~2006) Family History Mother Basal cell carcinoma Type 2 diabetes mellitus Hypertension Father Depression Type 2 diabetes mellitus Hypertension Brother Asthma Brother No problems noted. Son Asthma Depression Son No problems noted. Maternal Grandfather Skin cancer Type 2 diabetes mellitus Hypertension Maternal Grandmother Skin cancer Hypertension Type 2 diabetes mellitus Brain cancer Paternal Grandfather No problems noted. 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 Pets and animals: Yes Pets and animals: cat(s) and dog(s) Sexually active: Yes Do you think of yourself as: straight/heterosexual Current gender identity: female What is your relationship status?: How often do you talk on the phone with friends or family?: three or more times per week How often do you get together with friends or relatives?: once per week How often do you attend methodist or sabianism services?: 4 or more times per year Do you belong to any clubs or organized social groups?: no Panel score (0-1 are the most socially isolated patients): 3 What type of physical activity do you participate in: walking Duration: 60-90 minutes/day Frequency: 3-4 times per week [place]/Muslim: Restoration Special [place] needs: No Seatbelt use: sometimes Helmet use: No Drive intox or ride w/intox crew car driver: No Do you feel safe at home: Yes Do you feel safe in your relationship?: Yes Female Reproductive History Menstrual control method: permanent sterilization (BTL) History History 3 Para 2 Hx # Term Pregnancies Multiple births Hx # Pregnancies Ectopic pregnancies AB induced Hx Number of Living Children 2 AB spontaneous 1 Exam <Tesfaye Hatch DO - Last Filed: 05/21/20 07:58> Narrative Exam Narrative: 1.Const: Well-nourished, Well-developed, appearing stated age 2.Eyes: PERRL, no conjunctival injection, and symmetrical lids. 3.ENT: Atraumatic external nose and ears. Moist MM. Neck: Symmetric, trachea midline, No thyromegaly. 4.CVS: +S1/S2, No murmurs or gallops. Peripheral pulses 2+ and equal in all extremities. Brisk capillary refill in all extremities. 5.RESP: Unlabored respiratory effort. Clear to auscultation bilaterally. No wheezes rales or rhonchi 6.GI: Soft, Nontender/Nondistended, No hepatosplenomegaly. No guarding or rebound. 7.MSK: Normocephalic/Atraumatic, Extremities w/o deformity or ttp No cyanosis or clubbing, Normal movement of all extremities 8.Skin: Warm, Dry. No rashes or lesions. 9.Neuro: certified surgical assistant II-XII grossly intact. Sensation grossly intact, no focal neuro logic deficits. 10.Psych: (AAO) x3. Appropriate mood and affect Course <Tesfaye Hatch DO - Last Filed: 05/21/20 07:58> Vital Signs Vital signs: Vital Signs Temperature 36.6 C 05/21/20 06:21 Pulse 102 H 05/21/20 06:21 Respiratory Rate 20 05/21/20 06:21 Blood Pressure 141/96 H 05/21/20 06:21 Pulse Oximetry 97 05/21/20 06:21 Temperature 36.6 C 05/21/20 06:21 Temperature Source Temporal Artery Scan 05/21/20 06:21 Pulse 102 H 05/21/20 06:21 Respiratory Rate 20 05/21/20 06:21 Respiratory Effort Non-Labored 05/21/20 06:26 Blood Pressure 141/96 H 05/21/20 06:21 Blood Pressure Position Sitting 05/21/20 06:21 Pulse Oximetry 97 05/21/20 06:21 Pain Level 6 05/21/20 06:21 Sign Out <Tesfaye Hatch DO - Last Filed: 05/21/20 07:58> Sign Out Data: Sign Out Comment: Follow-up on ESR, CRP, lipase, and urine micro. Expectant discharge home. Last updated by Tesfaye Hatch DO at 05/21/20 07:51
[2020-05-21] MEDS: Normal Saline 1,000 ML 1000 ML IV (06:42)
[2020-05-21 06:56] LABS: Abs Immature Grans 0.04 10^3/uL (0.0-0.06); Absolute Basophil Count 0.04 10^3/uL (0.0-0.2); Absolute Eosinophil Count 0.17 10^3/uL (0.0-0.7); Absolute Lymphocyte Count 1.78 10^3/uL (1.2-3.4); Absolute Monocyte Count 0.49 10^3/uL (0.1-0.8); Absolute Neutrophil Count 5.28 10^3/uL (1.2-6.7); Basophils % 0.5; Eosinophils % 2.2; HCT 41.7 % (36.0-46.0); HGB 14.5 g/dL (11.2-15.7); Immature Grans % 0.5; Lymphocytes % 22.8; MCH 29.2 pg (27.0-33.0); MCHC 34.8 % (32.0-36.0); MCV 83.9 fL (80-95); MPV 10.7 fL (8.0-11.0); Monocytes % 6.3; Neutrophils % 67.7; Nucleated RBC 0 %; Platelet Count 284 10^3/uL (130-400); RBC 4.97 10^6/uL (3.93-5.22); RDW 12.2 % (11.7-14.6); RDW-SD 37.2 fL
[2020-05-21 07:10] LABS: ALT 42 U/L (14-59); AST 22 U/L (15-37); Albumin 3.9 g/dL (3.4-5.0); Alkaline Phosphatase 84 U/L (46-116); Anion Gap 9.4 mmol/L (3-11); BUN 11 mg/dL (7-18); Bilirubin, Total 0.6 mg/dL (0.2-1.0); CO2 27.6 mmol/L (21.0-32.0); CREATININE 0.98 mg/dL (0.55-1.02); Calcium 9.4 mg/dL (8.5-10.1); Chloride 99 mmol/L (98-107); Glucose 144 mg/dL (74-106); HCG Qual (Serum) Negative; Potassium 3.4 mmol/L (3.5-5.1); Sodium 136 mmol/L (136-145); Total Protein 8.2 g/dL (6.4-8.2)
--- NOTE | 2020-05-21 07:21 | DI.CT_ITS ---
EXAM: CT RENAL COLIC WO CLINICAL HISTORY: left flank pain. TECHNIQUE: Imaging Protocol: Axial computed tomography images with coronal and sagittal reformatted images were created and reviewed CONTRAST MATERIAL: Intravenous: none Oral: None COMPARISON: No exams were available for comparison FINDINGS: VISUALIZED LUNG BASES: No nodules nor pleural effusions evident. ABDOMEN: There is no ascites. LIVER: The visualized aspect of the liver is quite hypodense implying severe steatosis. No discrete focal hepatic lesions identified. Liver is slightly enlarged. GALLBLADDER/BILIARY: The gallbladder surgically absent. CBD is not dilated. PANCREAS: There is no evidence pancreatic mass nor dilatation pancreatic duct. SPLEEN: Spleen is not enlarged. No obvious intrasplenic lesions. ADRENALS: There are no significant adrenal masses. KIDNEYS:No cysts evident. There is a nonobstructive 4 millimeter calculus in the left kidney. No oth er renal calculi nor hydronephrosis evident. No hydroureter. There are no calculi seen in the nondi stended urinary bladder.. ABDOMINAL AORTA: The abdominal aorta is not enlarged. There is no para-aortic adenopathy. However, there is abnormal streaking in the fat anterior to the upper abdominal aorta at both the GRACIELA E Actiq and SMA levels, not associated with masses nor fluid collection at this level nor obvious abnormality in the pancreas. ABDOMINAL WALL/GI: No evidence of significant anterior abdominal wall hernia. No ischemic appearing bowel loops. No bowel obstruction nor free air nor abscess evident. PELVIS: LYMPH NODES: There is no intrapelvic nor inguinal adenopathy. GI: No evidence of appendicitis.No evidence of sigmoid diverticulitis. URINARY BLADDER: No calculi nor obvious masses evident REPRODUCTIVE: Uterus and at adnexal rib regions appear age-appropriate. There is no free fluid in th e pelvis. OSSEOUS: No significant osseous lesions. IMPRESSION: 1. Solitary nonobstructive 4 millimeter calculus in the left kidney. No hydronephrosis nor hydrouret er. No calculi in the urinary bladder. 2. Hepatic steatosis. Gallbladder surgically absent. The biliary tree is not dilated. 3. There is nonspecific streaking in the fat tissue anterior to the aorta at the celiac trunk and sup erior mesenteric artery level. There is no associated true lymphadenopathy nor fluid collection or m ass in this region. Recommend follow-up CT scan with IV contrast both arterial and venous phase. RADIATION DOSE DELIVERED: 956.26mGy.cm Total DLP DATA REPOSITORY: All CT scans at this facility are submitted to the National Radiology Data Registry (NRDR) Dose Index Registry (DIR) with the [employer] (ACR). RADIATION OPTIMIZATION: All CT scans at this facility use at least one of these dose optimization te chniques: automated exposure control; mA and/or kV adjustment per patient size (includes targeted exa ms where dose is matched to clinical indication); or iterative reconstruction.
--- NOTE | 2020-05-21 07:37 | DI.VRAD_ITS ---
Addendum created by Raciel Oneill MD on 05/21/2020 7:44:53 AM EST: Findings were discussed with PARAG STRONG at 05/21/2020 7:44 AM EST. Initial report created on 05/21/2020 7:37:03 AM EST: PROCEDURE INFORMATION: Exam: CT Abdomen And Pelvis Without Contrast Exam date and time: 05/21/2020 7:18 AM Age: 44 years old Clinical indication: Other: Left flank pain TECHNIQUE: Imaging protocol: Computed tomography of the abdomen and pelvis without contrast. Radiation optimization: All CT scans at this facility use at least one of these dose optimization techniques: automated exposure control; mA and/or kV adjustment per patient size (includes targeted exams where dose is matched to clinical indication); or iterative reconstruction. COMPARISON: US PELVIS TRANSVAGINAL 05/08/2018 4:44 PM FINDINGS: Lungs: Minimal dependent basilar atelectasis. Liver: Hepatomegaly. Fatty Infiltration. Liver incompletely visualized. No mass. Gallbladder and bile ducts: Surgical clips from prior cholecystectomy. Pancreas: No enlargement. No mass. No ductal dilatation. Spleen: Normal size. No mass. Adrenal glands: No mass. No enlargement. No hemorrhage. Kidneys and ureters: Nonobstructive left nephrolithiasis. No worrisome mass. No hydronephrosis. No hydroureter or ureterolithiasis. Stomach and bowel: No significant diverticulosis or diverticulitis. No colitis. Gastric wall thickening, lack of distention versus gastritis. No outlet obstruction. Small bowel normal without mechanical obstruction or pneumatosis. Appendix: Normal appearance without acute inflammation. Intraperitoneal space: No free intraperitoneal air demonstrated. No significant free fluid demonstrated. Vasculature: Aorta normal caliber without aneurysm, dissection or disruption. Mild nonspecific infiltration adjacent to the origin of the celiac axis and celiac trunk and superior mesenteric artery. Nonspecific finding. No associated lymphadenopathy, fluid collection or mass. Lymph nodes: No significant lymphadenopathy demonstrated. Urinary bladder: No wall thickening, mass or calculus. Reproductive: Unremarkable uterus. Ovarian follicular changes. No dominant adnexal mass. Bones/joints: Mild degenerative changes noted throughout the spine. Soft tissues: Small uncomplicated fat containing umbilical hernia. IMPRESSION: 1. No acute findings within the abdomen or pelvis. 2. Left nephrolithiasis. No acute obstructive uropathy on either side. 3. Nonspecific retroperitoneal infiltration/inflammation near the origin of the celiac trunk and superior mesenteric artery. No associated lymphadenopathy, fluid collection or mass. 4. Hepatomegaly with diffuse fatty infiltration. Dictated and Authenticated by: Raciel Oneill MD. Ordering:KASSI Carlin MD
[2020-05-21 07:47] LABS: Bilirubin Negative (Negative); Blood Trace-intact (Negative); Clarity Clear (Clear); Glucose Negative (Negative); Ketones Negative (Negative); Leukocyte Esterase Negative (Negative); Nitrite Negative (Negative); Urobilinogen 0.2 EU/dL (Up TO 0.2)
[2020-05-21 07:59] LABS: Bacteria Few HPF (Negative); C & S Indicated? No; Casts Negative LPF (Negative); Crystals Negative HPF (Negative); Epithelial Cells Few HPF (Negative); Mucus Trace (Negative); RBC 0-2 HPF (0-2); WBC 0-2 HPF (0-5)
[2020-05-21 08:02] LABS: C-Reactive Protein 4.35 mg/dL (0.0-0.3); Lipase 66 U/L (73-393)
[2020-05-21 08:21] VITALS: BP 113/57; PULSE 87; RESP 16; TEMP 36.8; O2SAT 95
[2020-05-21 08:29] LABS: ESR 20 mm/hr (0-20)
--- NOTE | 2020-05-21 09:55 | DI.CT_ITS ---
EXAM: CT ABDOMEN PELVIS W CLINICAL HISTORY: flank pain, noncontrast CT vasc finding, crp up. TECHNIQUE: Imaging Protocol: Axial computed tomography images with coronal and sagittal reformatted images were created and reviewed CONTRAST MATERIAL: Intravenous: Omnipaque 100cc Oral: None COMPARISON: CT CT RENAL COLIC WO from 05/21/2020 FINDINGS: VISUALIZED LUNG BASES: Mild atelectasis or early infiltrate noted posteriorly in both lower lobes on the uppermost images of this study. This is slightly more prominent on the right side. No associate d pleural effusions.. ABDOMEN: There is no ascites. The previously described streaking anterior to the upper abdominal aorta again noted. This contrast infused study reveals the celiac artery and its branches to be patent and the s uperior mesenteric artery also to be patent as well as no evidence of thrombosis within superior mese nteric vein, portal vein confluence and main portal vein and the splenic vein is also demonstrated to be nicely patent. There is no significant atherosclerotic disease in the abdominal aorta and the in ferior mesenteric artery is patent. There no ischemic appearing bowel loops. LIVER: Hepatomegaly and hepatic steatosis again noted. No discrete focal hepatic lesions. GALLBLADDER/BILIARY: Gallbladder is again noted be surgically absent. CBD is not dilated. PANCREAS: No evidence of pancreatic mass nor dilatation of the pancreatic duct keep. The above descr ibed streaking is behind the neck of the pancreas and just above the uncinate process but is doubtful originating from the pancreas. Nevertheless, recommend checking appropriate lipases and other pancr eatic blood work. SPLEEN: Spleen is not enlarged. No obvious intrasplenic lesions. Splenic and portal veins are paten t. ADRENALS: There are no significant adrenal masses. KIDNEYS:No cysts evident. No solid renal masses. Small nonobstructive 3-4 millimeter calculus in the left kidney is again noted. No hydronephrosis nor hydroureter. No calculi in the urinary bladder.. ABDOMINAL AORTA: Abdominal aorta is not enlarged. There is no para-aortic adenopathy. ABDOMINAL WALL/GI: No evidence of significant anterior abdominal wall hernia. No bowel obstruction. PELVIS: GI: No evidence of appendicitis.No evidence of sigmoid diverticulitis. LYMPH NODES: There is no intrapelvic nor inguinal adenopathy. REPRODUCTIVE: Uterus and adnexal regions appear age-appropriate. There is no free fluid in the pelvi s URINARY BLADDER: No calculi nor obvious masses evident OSSEOUS: No significant osseous lesions. IMPRESSION: 1. The previously described streaking anterior to the upper aorta is again noted but is not associate d with thrombosis nor occlusion of the adjacent celiac artery and superior mesenteric artery nor of t he IVC and nearby preaortic left renal vein. In addition, the superior mesenteric vein, portal vein confluence, and portal vein are demonstrated to be nicely patent on this study. There is no adenopat hy. 2. Given the streaking I recommend pancreatic blood work, although the pancreas itself appears nearby but unremarkable. 3. Hepatomegaly and hepatic steatosis again noted. 4. Gallbladder is again noted be surgically absent. The biliary tree is not dilated. RADIATION DOSE DELIVERED: 1,321.56mGy.cm Total DLP DATA REPOSITORY: All CT scans at this facility are submitted to the National Radiology Data Registry (NRDR) Dose Index Registry (DIR) with the [employer] (ACR). RADIATION OPTIMIZATION: All CT scans at this facility use at least one of these dose optimization te chniques: automated exposure control; mA and/or kV adjustment per patient size (includes targeted exa ms where dose is matched to clinical indication); or iterative reconstruction.
[2020-05-21] MEDS: Normal Saline - Diluent 50 ML VIAL IV (10:01)
[2020-05-21] MEDS: Omnipaque 350 MG/ML 100 ML BTL IJ (10:01)
[2020-05-21 11:10] VITALS: BP 141/81; PULSE 90; RESP 16; TEMP 36.8; O2SAT 96
== END 2020-05-21 11:10 | disposition home or self-care (01) ==
PROVIDERS: Student in an Organized Health Care Education/Training Program; Emergency Provider Student in an Organized Health Care Education/Training Program; PCP Nurse Practitioner Family
DX: K76.0 Fatty (change of) liver, not elsewhere classified (principal); R10.12 Left upper quadrant pain; R79.82 Elevated C-reactive protein (CRP); I10 Essential (primary) hypertension
CPT/HCPCS: 36415; 80053; 83690; 85652; 96361; 96374; 99285; 74176; 74177; 81003; 81015; 84703; 85025; 86140; J3490

== ENCOUNTER 2020-05-25 10:16 | Outpatient (REF) | payer BC, SELFPAY ==
[2020-05-25 14:19] LABS: Bilirubin Negative (Negative); Blood Negative (Negative); Clarity Clear (Clear); Glucose Negative (Negative); Ketones Negative (Negative); Leukocyte Esterase Negative (Negative); Nitrite Negative (Negative); Specific Gravity >= 1.030 (1.005-1.025); Urobilinogen 0.2 EU/dL (Up TO 0.2)
== END 2020-05-25 10:36 ==
LOC: LBN 10:16
PROVIDERS: PCP Nurse Practitioner Family
DX: R31.9 Hematuria, unspecified (principal)
CPT/HCPCS: 81003

== ENCOUNTER 2020-06-15 04:57 | Outpatient (CLI) | payer BC, SELFPAY ==
[2020-06-15 13:10] LABS: ALT 104 U/L (14-59); AST 38 U/L (15-37); Albumin 3.8 g/dL (3.4-5.0); Alkaline Phosphatase 95 U/L (46-116); Amylase 28 U/L (25-115); Anion Gap 7.9 mmol/L (3-11); BUN 13 mg/dL (7-18); Bilirubin, Total 0.4 mg/dL (0.2-1.0); C-Reactive Protein 0.86 mg/dL (0.0-0.3); CO2 31.1 mmol/L (21.0-32.0); CREATININE 0.89 mg/dL (0.55-1.02); Calcium 9.5 mg/dL (8.5-10.1); Chloride 101 mmol/L (98-107); Glucose 115 mg/dL (74-106); Lipase 74 U/L (73-393); Potassium 3.6 mmol/L (3.5-5.1); Sodium 140 mmol/L (136-145); Total Protein 7.3 g/dL (6.4-8.2)
[2020-06-15 13:13] LABS: Hemoglobin A1C 6.2 % (<5.7)
== END 2020-06-15 05:17 ==
PROVIDERS: PCP Nurse Practitioner Family
DX: I10 Essential (primary) hypertension; R10.12 Left upper quadrant pain; R73.03 Prediabetes; K76.0 Fatty (change of) liver, not elsewhere classified
CPT/HCPCS: 36415; 80053; 83690; 82150; 83036; 86140

== ENCOUNTER 2020-08-11 09:51 | Outpatient (CLI) | payer BC, SELFPAY ==
[2020-08-12 14:00] LABS: COVID-19 RT-PCR UVMMC Result Positive (Negative)
== END 2020-08-11 09:52 | disposition home or self-care (01) ==
PROVIDERS: PCP Nurse Practitioner Family; Visit Provider Nurse Practitioner Family
DX: Z20.822 Contact with and (suspected) exposure to COVID-19 (principal)
CPT/HCPCS: U0003

== ENCOUNTER 2020-10-05 12:25 | Outpatient (REF) | payer BC, SELFPAY ==
[2020-10-05 14:16] LABS: ALT 45 U/L (14-59); AST 24 U/L (15-37); Albumin 3.8 g/dL (3.4-5.0); Alkaline Phosphatase 75 U/L (46-116); Anion Gap 7.2 mmol/L (3-11); BUN 15 mg/dL (7-18); Bilirubin, Total 0.4 mg/dL (0.2-1.0); CO2 31.8 mmol/L (21.0-32.0); CREATININE 0.8 mg/dL (0.55-1.02); Calcium 9.4 mg/dL (8.5-10.1); Chloride 102 mmol/L (98-107); Glucose 125 mg/dL (74-106); Potassium 3.8 mmol/L (3.5-5.1); Sodium 141 mmol/L (136-145); Total Protein 7.6 g/dL (6.4-8.2)
[2020-10-05 14:19] LABS: Hemoglobin A1C 6.3 % (<5.7)
== END 2020-10-05 12:26 | disposition home or self-care (01) ==
LOC: LBN 12:25
PROVIDERS: PCP Nurse Practitioner Family; Visit Provider Nurse Practitioner Family
DX: K76.0 Fatty (change of) liver, not elsewhere classified (principal); K75.81 Nonalcoholic steatohepatitis (NASH); R73.03 Prediabetes
CPT/HCPCS: 80053; 83036; 86140

== ENCOUNTER 2021-01-04 00:20 | Emergency (ER) | payer BC, SELFPAY ==
--- NOTE | 2021-01-04 00:15 | DI.CT_ITS ---
Exam(s) CT RENAL COLIC WO EXAM: CT RENAL COLIC WO CLINICAL HISTORY: left flank pain. TECHNIQUE: Imaging Protocol: Axial computed tomography images with coronal and sagittal reformatted images were created and reviewed CONTRAST MATERIAL: Intravenous: none Oral: None COMPARISON: CT CT ABDOMEN PELVIS W from 05/21/2020 FINDINGS: VISUALIZED LUNG BASES: No nodules nor pleural effusions evident. ABDOMEN: There is no ascites. LIVER: Liver is quite hypodense, implying severe steatosis, previously present. There are no discret e focal hepatic lesions identified. GALLBLADDER/BILIARY: Gallbladder is again noted be surgically absent. CBD is not dilated. PANCREAS: No evidence of pancreatic mass nor dilatation of the pancreatic duct. SPLEEN: Spleen is not enlarged. No obvious intrasplenic lesions. ADRENALS: There are no significant adrenal masses. KIDNEYS:The right kidney appears unremarkable. There is mild hydronephrosis and hydroureter on the l eft side. There are phleboliths again noted in both sides of the perineum. There are no radiopaque calculi evident in the urinary bladder but there does appear to be a 3-4 millimeter calculus in the u rethra which was not evident on the prior CT scan. ABDOMINAL AORTA: Abdominal aorta is not enlarged. LYMPH NODES: There is no retroperitoneal nor paraaortic adenopathy. ABDOMINAL WALL: No evidence of significant anterior abdominal wall hernia. GI: There is no evidence of bowel obstruction, free air, nor abscess. PELVIS: LYMPH NODES: There is no intrapelvic nor inguinal adenopathy. GI: No evidence of appendicitis.No evidence of sigmoid diverticulitis. URINARY BLADDER: No calculi nor obvious masses evident REPRODUCTIVE: Age appropriate. OSSEOUS: No significant osseous lesions. IMPRESSION: 1. Mild unilateral dilatation of the left renal collecting system as well as left perinephric strandi ng. The culprit calculus appears to be at the level distal to the urinary bladder in the midline per ineum within the urethra. It measures 3-4 millimeters. 2. Advanced hepatic steatosis is again noted. No discrete focal hepatic lesions evident on this leticia nfused study. 3. Opposite-right kidney appears unremarkable. RADIATION DOSE DELIVERED: 1,260.53mGy.cm Total DLP DATA REPOSITORY: All CT scans at this facility are submitted to the National Radiology Data Registry (NRDR) Dose Index Registry (DIR) with the [employer] (ACR). RADIATION OPTIMIZATION: All CT scans at this facility use at least one of these dose optimization te chniques: automated exposure control; mA and/or kV adjustment per patient size (includes targeted exa ms where dose is matched to clinical indication); or iterative reconstruction.
[2021-01-04 00:25] VITALS: BP 159/116; PULSE 85; RESP 18; TEMP 36; O2SAT 96
--- NOTE | 2021-01-04 00:29 | W.ED.GENAD ---
Discharge Plan Disposition Patient Disposition: HOME Condition: Good Discharge Details Clinical Impression: Kidney stone on left side Primary Care Provider: Mavis Camp ED Provider: Tesfaye Hatch Home Meds and New Rx's Prescriptions: Continued loratadine 10 mg tablet 10 mg PO DAILY RF: 0 hydrochlorothiazide 25 mg tablet 25 mg PO DAILY Qty: 90 RF: 4 omeprazole 20 mg capsule,delayed release(DR/EC) 20 mg PO DAILY Qty: 90 RF: 4 mometasone 50 mcg/actuation spray,non-aerosol 2 spray АЛЕКСАНДР DAILY Qty: 17 RF: 4 losartan 50 mg tablet 50 mg PO DAILY Qty: 90 RF: 4 Discharge Instructions Instructions: Kidney Stones (ED) Additional Instructions: At this time it is highly likely that you have passed a kidney stone. Please drink plenty of fluids, and cranberry juice and cranberry concentrate. Please take Tylenol and Motrin as needed for pain. Please use the urine strainer to collect your kidney stone for further analysis. If you notice any worsening of your symptoms, or any new symptoms such as vomiting, diarrhea, fever, chills, shortness of breath, chest pain, numbness, weakness, or fainting , please return immediately to the emergency department for reevaluation. Please follow up with your primary care provider as soon as possible for reassessment and reevaluation. As always, it was a pleasure participating in your medical care today. Referrals: Mavis Camp, KENIA [Primary Care Provider] - Medical Decision Making 45-year-old female with a past medical history of tubal ligation, cholecystectomy, GERD, presents today for evaluation of left flank pain. Patient states that the pain began a few hours ago when she was trying to urinate. She describes it as an achy stabbing pain traveling from her left flank down to her left groin. She admits to vomiting, and mild nausea. She denies any hematochezia melena or acholic stool. She denies any hematemesis. She denies any fever or chills. No other complaints at this time. No other modifying factors. Physical exam demonstrates a nonsurgical abdomen, no reproducibility of her pain, however the pain is in the left flank going down to the groin. Differential size for kidney stone. Will treat with pain medications, fluids and get a CT renal scan. 1:[address] scan results have returned, 4 mm kidney stone noted in the urethra. Patient symptoms have notably transitioned from severe pain to complete resolution of pain. Patient feels much better and feels comfortable going home. She tolerated p.o. well. Laboratory work-up shows no evidence of significant urinary infection, white count, bandemia, or severe renal dysfunction. Creatinine slightly elevated, but otherwise stable. With the patient's improvement of her pain, likely passing the kidney stone I feel that discharge is appropriate at this time. Discussed red flags which to return. I have extensively reviewed the treatment plan and discharge instructions with the patient. I have addressed all patient concerns at this time. The patient was made aware of what symptoms to monitor for that would warrant a return to the emergency department. Discussed the plan with the patient, they demonstrate verbal understanding and agreement with our assessment and plan at this time. The documentation in this chart was dictated using [employer] dictation software. Please excuse any dictation errors. FINDINGS: Liver: There is diffuse hepatic steatosis. Gallbladder and bile ducts: The patient is status post cholecystectomy. Pancreas: Normal. No ductal dilation. Spleen: Normal. No splenomegaly. Adrenal glands: Normal. No mass. Kidneys and ureters: There is mild dilation of the left renal collecting system and perinephric stranding is noted around the left kidney. There is a 4 mm calculus seen in the midline perineum, likely passing left renal calculus. Stomach and bowel: Unremarkable. No obstruction. No mucosal thickening. Appendix: No evidence of appendicitis. Intraperitoneal space: Unremarkable. No free air. No significant fluid collection. Vasculature: Unremarkable. No abdominal aortic aneurysm. Lymph nodes: Unremarkable. No enlarged lymph nodes. Urinary bladder: Unremarkable as visualized. Reproductive: Unremarkable as visualized. Bones/joints: Unremarkable. No acute fracture. Soft tissues: Unremarkable. IMPRESSION: 1. Mild dilation of the left renal collecting system with left perinephric stranding noted. 4 mm calculus within the perineum likely represents passing calculus within the urethra. Correlate with clinical findings. 2. Hepatic steatosis. Thank you for allowing us to participate in the care of your patient. Dictated and Authenticated by: Steff Oliva MD 01/04/2021 1:24 AM Eastern Time ([place] & [place]) HPI General Date/Time Provider Initiated Documentation: 01/04/21 00:21. HPI Narrative: 45-year-old female with a past medical history of tubal ligation, cholecystectomy, GERD, presents today for evaluation of left flank pain. Patient states that the pain began a few hours ago when she was trying to urinate. She describes it as an achy stabbing pain traveling from her left flank down to her left groin. She admits to vomiting, and mild nausea. She denies any hematochezia melena or acholic stool. She denies any hematemesis. She denies any fever or chills. No other complaints at this time. No other modifying factors. Related Data Home Medications Medication Instructions Recorded Confirmed mometasone 50 mcg/actuation nasal 2 spray АЛЕКСАНДР DAILY #17 gm 03/16/20 01/04/21 spray hydrochlorothiazide 25 mg tablet 25 mg PO DAILY #90 tab 05/06/20 01/04/21 omeprazole 20 mg capsule,delayed 20 mg PO DAILY #90 cap 05/06/20 01/04/21 release loratadine 10 mg tablet 10 mg PO DAILY 10/05/20 01/04/21 losartan 50 mg tablet 50 mg PO DAILY #90 tab 10/28/20 01/04/21 Previous Rx's Medication Instructions Recorded mometasone 50 mcg/actuation nasal 2 spray АЛЕКСАНДР DAILY #17 gm 03/16/20 spray hydrochlorothiazide 25 mg tablet 25 mg PO DAILY #90 tab 05/06/20 omeprazole 20 mg capsule,delayed 20 mg PO DAILY #90 cap 05/06/20 release losartan 50 mg tablet 50 mg PO DAILY #90 tab 10/28/20 Allergies Allergy/AdvReac Type Severity Reaction Status Date / Time doxycycline Allergy Intermediate Rash Verified 01/04/21 00:29 gluten Allergy Unverified 01/04/21 00:29 banana AdvReac Other (See Verified 01/04/21 00:29 Comment) General Stated Complaint: FlankPain ROSS: 3 Review of Systems All systems reviewed & are unremarkable except as noted in HPI and below PFSH Medical History Allergic rhinitis Basal cell carcinoma Right Cheek COVID-19 virus infection Positive COVID test 08/11/20 Essential hypertension GERD (gastroesophageal reflux disease) Hepatic steatosis Hyperlipidemia Iron deficiency anemia due to chronic blood loss Menorrhagia with regular cycle Obesity Prediabetes Surgical History History of bilateral tubal ligation (05/11/03) History of section (05/11/03) 04/16/94 and 05/11/03 S/P endometrial ablation (11/28/18) S/P left knee arthroscopy (02/10/20) Status post cholecystectomy (~2006) Family History Mother Basal cell carcinoma Type 2 diabetes mellitus Hypertension Father Depression Type 2 diabetes mellitus Hypertension Brother Asthma Brother No problems noted. Son Asthma Depression Son No problems noted. Maternal Grandfather Skin cancer Type 2 diabetes mellitus Hypertension Maternal Grandmother Skin cancer Hypertension Type 2 diabetes mellitus Brain cancer Paternal Grandfather No problems noted. 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 Pets and animals: Yes Pets and animals: cat(s) and dog(s) Sexually active: Yes Do you think of yourself as: straight/heterosexual Current gender identity: female What is your relationship status?: How often do you talk on the phone with friends or family?: three or more times per week How often do you get together with friends or relatives?: once per week How often do you attend christian or rastafari services?: 4 or more times per year Do you belong to any clubs or organized social groups?: no Panel score (0-1 are the most socially isolated patients): 3 What type of physical activity do you participate in: walking Duration: 60-90 minutes/day Frequency: 3-4 times per week [place]/Pentecostalism: Restorationism Special [place] needs: No Seatbelt use: sometimes Helmet use: No Drive intox or ride w/intox bus van driver: No Do you feel safe at home: Yes Do you feel safe in your relationship?: Yes Female Reproductive History Menstrual control method: permanent sterilization (BTL) History History 3 Para 2 Hx # Term Pregnancies Multiple births Hx # Pregnancies Ectopic pregnancies AB induced Hx Number of Living Children 2 AB spontaneous 1 Exam Narrative Exam Narrative: 1.Const: Well-nourished, Well-developed, appearing stated age 2.Eyes: PERRL, no conjunctival injection, and symmetrical lids. 3.ENT: Atraumatic external nose and ears. Moist MM. Neck: Symmetric, trachea midline, No thyromegaly. 4.CVS: +S1/S2, No murmurs or gallops. Peripheral pulses 2+ and equal in all extremities. Brisk capillary refill in all extremities. 5.RESP: Unlabored respiratory effort. Clear to auscultation bilaterally. No wheezes rales or rhonchi 6.GI: Soft, Nontender/Nondistended, No hepatosplenomegaly. No guarding or rebound. Palpation of her left abdomen is the location of the pain but is not made worse with palpation. 7.MSK: Normocephalic/Atraumatic, Extremities w/o deformity or ttp No cyanosis or clubbing, Normal movement of all extremities 8.Skin: Warm, Dry. No rashes or lesions. 9.Neuro: front end assistant II-XII grossly intact. Sensation grossly intact, no focal neurologic deficits. 10.Psych: (AAO) x3. Appropriate mood and affect Course Vital Signs Vital signs: Vital Signs Temperature 36.0 C L 01/04/21 00:25 Pulse 85 01/04/21 00:25 Respiratory Rate 18 01/04/21 00:25 Blood Pressure 159/116 H 01/04/21 00:25 Pulse Oximetry 96 01/04/21 00:25 Temperature 36.0 C L 01/04/21 00:25 Pulse 85 01/04/21 00:25 Respiratory Rate 18 01/04/21 00:25 Blood Pressure 159/116 H 01/04/21 00:25 Pulse Oximetry 96 01/04/21 00:25 Pain Level 9 01/04/21 00:25
[2021-01-04] MEDS: Normal Saline 1,000 ML 1000 ML IV (00:40)
[2021-01-04] MEDS: Ondansetron 4 MG/2 ML VIAL IVP (00:41)
[2021-01-04] MEDS: Ketorolac 15 MG/ML VIAL IVP (00:42)
[2021-01-04] MEDS: MORPHine 4 MG/ML SYR IVP (00:45)
[2021-01-04 00:48] LABS: Abs Immature Grans 0.05 10^3/uL (0.0-0.06); Absolute Basophil Count 0.05 10^3/uL (0.0-0.2); Absolute Eosinophil Count 0.28 10^3/uL (0.0-0.7); Absolute Lymphocyte Count 1.77 10^3/uL (1.2-3.4); Absolute Neutrophil Count 7.64 10^3/uL (1.2-6.7); Basophils % 0.5; Eosinophils % 2.7; HGB 14.5 g/dL (11.2-15.7); Immature Grans % 0.5; MCH 28.4 pg (27.0-33.0); MCHC 33.7 % (32.0-36.0); MCV 84.3 fL (80-95); Monocytes % 5.8; Neutrophils % 73.5; Nucleated RBC 0 %; Platelet Count 303 10^3/uL (130-400); RDW 12.8 % (11.7-14.6); RDW-SD 39.1 fL; WBC 10.39 10^3/uL (4.4-10.8)
[2021-01-04 00:54] LABS: Bilirubin Negative (Negative); Blood Large (Negative); Clarity Cloudy (Clear); Glucose Negative (Negative); Ketones Negative (Negative); Leukocyte Esterase Trace (Negative); Nitrite Negative (Negative); Specific Gravity >= 1.030 (1.005-1.025); Urobilinogen 0.2 EU/dL (Up TO 0.2)
[2021-01-04 00:59] LABS: Epithelial Cells Many HPF (Negative); RBC >50 HPF (0-2)
[2021-01-04 01:00] LABS: C & S Indicated? No/Sq. Contamination
[2021-01-04 01:01] LABS: ALT 47 U/L (14-59); AST 26 U/L (15-37); Albumin 3.9 g/dL (3.4-5.0); Alkaline Phosphatase 88 U/L (46-116); Anion Gap 10.7 mmol/L (3-11); BUN 16 mg/dL (7-18); Bilirubin, Total 0.4 mg/dL (0.2-1.0); CO2 28.3 mmol/L (21.0-32.0); CREATININE 1.2 mg/dL (0.55-1.02); Calcium 9.5 mg/dL (8.5-10.1); Chloride 100 mmol/L (98-107); Estimated GFR 48.58 (mL/min/1.73m2); Glucose 172 mg/dL (74-106); Lipase 77 U/L (73-393); Potassium 3.4 mmol/L (3.5-5.1); Sodium 139 mmol/L (136-145)
--- NOTE | 2021-01-04 01:24 | DI.VRAD_ITS ---
PROCEDURE INFORMATION: Exam: CT Abdomen And Pelvis Without Contrast Exam date and time: 01/04/2021 12:29 AM Age: 45 years old Clinical indication: Left flank pain; Prior surgery; Surgery date: 6+ months; Surgery type: , tubal ligation, cholecystectomy, TECHNIQUE: Imaging protocol: Computed tomography of the abdomen and pelvis without contrast. Radiation optimization: All CT scans at this facility use at least one of these dose optimization techniques: automated exposure control; mA and/or kV adjustment per patient size (includes targeted exams where dose is matched to clinical indication); or iterative reconstruction. COMPARISON: CT ABDOMEN PELVIS W 05/21/2020 9:43 AM FINDINGS: Liver: There is diffuse hepatic steatosis. Gallbladder and bile ducts: The patient is status post cholecystectomy. Pancreas: Normal. No ductal dilation. Spleen: Normal. No splenomegaly. Adrenal glands: Normal. No mass. Kidneys and ureters: There is mild dilation of the left renal collecting system and perinephric stranding is noted around the left kidney. There is a 4 mm calculus seen in the midline perineum, likely passing left renal calculus. Stomach and bowel: Unremarkable. No obstruction. No mucosal thickening. Appendix: No evidence of appendicitis. Intraperitoneal space: Unremarkable. No free air. No significant fluid collection. Vasculature: Unremarkable. No abdominal aortic aneurysm. Lymph nodes: Unremarkable. No enlarged lymph nodes. Urinary bladder: Unremarkable as visualized. Reproductive: Unremarkable as visualized. Bones/joints: Unremarkable. No acute fracture. Soft tissues: Unremarkable. IMPRESSION: 1. Mild dilation of the left renal collecting system with left perinephric stranding noted. 4 mm calculus within the perineum likely represents passing calculus within the urethra. Correlate with clinical findings. 2. Hepatic steatosis. Dictated and Authenticated by: Steff Marroquin MD. Ordering:KASSI Carlin MD
[2021-01-04 01:44] VITALS: BP 160/77; PULSE 89; RESP 18; O2SAT 95
== END 2021-01-04 01:56 | disposition home or self-care (01) ==
PROVIDERS: Emergency Provider Student in an Organized Health Care Education/Training Program; PCP Nurse Practitioner Family
DX: N20.0 Calculus of kidney (principal); R82.71 Bacteriuria; B96.20 Unspecified Escherichia coli [E. coli] as the cause of diseases classified elsewhere
CPT/HCPCS: 36415; 80053; 83690; 87077; 96361; 96374; 96375; 99284; 74176; 81003; 81015; 85025; 87086; 87186; 99285; J1885; J2270; J2405

== ENCOUNTER 2021-08-25 10:44 | Outpatient (REF) | payer BC, SELFPAY ==
[2021-08-26 16:27] LABS: COVID-19 RT-PCR UVMMC Result Negative (Negative)
== END 2021-08-25 10:45 | disposition home or self-care (01) ==
LOC: LBN 10:44
PROVIDERS: PCP Nurse Practitioner Family; Visit Provider Family Medicine
DX: Z20.822 Contact with and (suspected) exposure to COVID-19 (principal)
CPT/HCPCS: U0003

== ENCOUNTER 2022-02-28 09:39 | Outpatient (REF) | payer BC, SELFPAY ==
--- NOTE | 2022-02-28 08:45 | PAPFT_PTH ---
PATIENT: Lety Charles LOC: [facility] U#:[id number] AGE/SX: 46/F ROOM: RE02/28/[address]: HEATHER Parmar : 1975 BED: DIS: 02/28/2022 SPEC #: [id number] RECD: 02/28/22 13:05 STATUS: NAHUM REAmy #: [id number] SEJAL: 02/28/22 08:[address]: Mavis Camp DEPT: [facility] Cytology RECD BY: Glenis Foster Tissues: 1 - CX/ENDOCX FOR PAP SMEARS Procedures: PAP THIN PREP/UVM Screening HPV DNA PROBE Comments: [id number]
== END 2022-02-28 09:40 | disposition home or self-care (01) ==
LOC: LBN 09:39
PROVIDERS: PCP Nurse Practitioner Family; Visit Provider Nurse Practitioner Family
DX: N76.0 Acute vaginitis (principal); Z12.4 Encounter for screening for malignant neoplasm of cervix; R87.610 Atypical squamous cells of undetermined significance on cytologic smear of cervix (ASC-US); Z11.51 Encounter for screening for human papillomavirus (HPV)
CPT/HCPCS: 88142; 87480; 87510; 87624; 87660

== ENCOUNTER → 2022-03-29 02:36 | Outpatient (CLI) | payer BC, SELFPAY ==
--- NOTE | 2022-03-29 12:36 | DI.MAMMO_ITS ---
Exam(s) MAMMO SCREENING EXAM: MAMMO SCREENING CLINICAL HISTORY: screening,z12.39 TECHNIQUE: Bilateral full field digital CC and MLO mammographic images were obtained with 3D tomosyn thesis and utilizing computer aided detection (CAD). COMPARISON: Available for comparison. FINDINGS: Masses/Architectural Distortion: No suspicious masses or areas of architectural distortion are identi fied. Microcalcifications: No suspicious pleomorphic-type are seen. Skin Thickening/Nipple Retraction: None. IMPRESSION: 1. No significant interval change with no specific features of malignancy noted. 2. Unless there is more urgent need, screening mammography is recommended, as per [employer] guidelines. BI-RADS Category 1 - Negative Breast Density - Category C - Heterogeneously dense Breast density category C or D implies that the patient has dense breast tissue. Dense breast tissue is very common and is not abnormal but dense breast tissue can make it harder to find cancer on a ma mmogram. Also, dense breast tissue may increase their breast cancer risk. This information about the result of the mammogram report was provided to the patient to raise their awareness. Use this report when you speak with the patient about their risks for breast cancer, which includes their family hist ory. At that time, you may recommend for more screening tests (Ultrasound or MRI) as they might be us eful based on their risk. A negative radiographic report should not delay biopsy if a dominant or clinically suspicious mass is present. Up to ten percent of cancers are not identified on mammography. A negative report may reinforce clinical impression. Adenosis and dense breasts may obscure an underlying neoplasm. False positive reports average 6 to 10%. Patient will receive a letter notifying them of these results.
== END ==
PROVIDERS: PCP Nurse Practitioner Family; Visit Provider Nurse Practitioner Family
DX: Z12.31 Encounter for screening mammogram for malignant neoplasm of breast (principal); R92.8 Other abnormal and inconclusive findings on diagnostic imaging of breast
CPT/HCPCS: 77063; 77067

== ENCOUNTER 2022-12-04 09:26 | Emergency (ER) | payer BC, SELFPAY ==
[2022-12-04 09:47] VITALS: BP 149/99; PULSE 77; RESP 18; TEMP 37.2; O2SAT 97
--- NOTE | 2022-12-04 11:46 | W.ED.GENAD ---
Discharge Plan Disposition Patient Disposition: Home Discharge Details Clinical Impression: Acute back pain with sciatica Primary Care Provider: Mavis Camp ED Provider: Paramjit Christine Home Meds and New Rx's Prescriptions: New cyclobenzaprine 10 mg tablet 10 mg PO TID PRN (Reason: muscle spasm) Qty: 20 0RF Continued loratadine 10 mg tablet 10 mg PO DAILY losartan 100 mg tablet 100 mg PO DAILY Qty: 90 3RF hydrochlorothiazide 25 mg tablet 25 mg PO DAILY Qty: 90 3RF omeprazole 20 mg capsule,delayed release(DR/EC) 20 mg PO DAILY Qty: 90 3RF Rx Instructions: Take 1 tablet once a day 30-60 minutes before breakfast mometasone 50 mcg/actuation spray,non-aerosol 2 spray АЛЕКСАНДР DAILY Qty: 17 4RF Rx Instructions: 2 sprays each nostril once a day spironolactone 25 mg tablet 25 mg PO DAILY Qty: 90 0RF Discharge Instructions Instructions: Back Pain (ED) Additional Instructions: As discussed if you have any new or significant worsening of symptoms return immediately to the emergency department for reassessment. Otherwise continue to take medications as prescribed and follow-up with your primary care provider if not improving in the next week. You have been given a muscle relaxer which may cause some sedation. So please use caution if taking this medication during the day with any operating motor vehicles, firearms, or dangerous machinery or equipment. Stand Alone Forms: Work Release Referrals: Mavis Camp, [employer] [Primary Care Provider] - 1 week Discharge Data Discharge Date/Time-TO BE ENTERED AT DEPARTURE: 12/04/22 12:22 Medical Decision Making Patient presenting to the emergency department for chief complaint of back pain. Patient has had back pain for the past 10 days. She does state previous episodes similar to this but never this severe or lasting this long. Patient denies any injury or trauma, fever chills, saddle anesthesia does not use IV drugs and denies any severe weakness or sensation changes to the right lower extremity. Physical exam consistent with sciatic back pain. I feel that patient is LOW risk for ABDOMINAL AORTIC ANEURYSM, CAUDA EQUINA SYNDROME, EPIDURAL MASS LESION, SPINAL STENOSIS, OR HERNIATED DISK CAUSING SEVERE STENOSIS, thus I consider the discharge disposition reasonable. Prior to discharge we will give patient Depo-Medrol and ketorolac IM and start patient on muscle relaxers and patient will continue use of [id number] pain medication as needed. We have discussed the diagnosis and risks, and we agree with discharging home to follow-up with their primary doctor. We also discussed returning to the Emergency Department immediately if new or worsening symptoms occur. We have discussed the symptoms which are most concerning (e.g., saddle anesthesia, urinary or bowel incontinence or retention, changing or worsening pain) that necessitate immediate return. After discussion of diagnosis and plan of care patient has no further needs, questions, or concerns and states clear understanding to return to the emergency department for any worsening symptoms. This documentation was generated using Net[employer]inderation system, please disregard any oddities of phrase or misspellings. HPI General Mode of arrival: ambulatory. Date/Time Provider Initiated Documentation: 12/04/22 11:07. Limitations to Documentation: no limitations. Information obtained by: patient and RN notes reviewed. History of Present Illness 47 year old F presents to the emergency department with the chief complaint of Back pain radiating down right leg, described as moderate and similar to prior episodes, Quality is described as aching and sharp, and is localized to the back. Patient extremity. Patient started experiencing this day(s) (10) and it has been constant. No relieving factors improve symptom(s), Movement worsens symptoms . Patient notes no other symptoms.. Patient did receive the following treatments prior to arrival, NSAID Related Data Home Medications Medication Instructions Recorded Confirmed loratadine 10 mg tablet 10 mg PO DAILY 10/05/20 12/04/22 hydrochlorothiazide 25 mg tablet 25 mg PO DAILY #90 tabs 02/28/22 12/04/22 losartan 100 mg tablet 100 mg PO DAILY #90 tabs 02/28/22 12/04/22 omeprazole 20 mg capsule,delayed 20 mg PO DAILY heartburn #90 caps 02/28/22 12/04/22 release mometasone 50 mcg/actuation nasal 2 spray intranasal DAILY #17 grams 09/05/22 12/04/22 spray spironolactone 25 mg tablet 25 mg PO DAILY #90 tabs 11/28/22 12/04/22 cyclobenzaprine 10 mg tablet 10 mg PO TID PRN muscle spasm #20 12/04/22 tabs Previous Rx's Medication Instructions Recorded hydrochlorothiazide 25 mg tablet 25 mg PO DAILY #90 tabs 02/28/22 losartan 100 mg tablet 100 mg PO DAILY #90 tabs 02/28/22 omeprazole 20 mg capsule,delayed 20 mg PO DAILY heartburn #90 caps 02/28/22 release mometasone 50 mcg/actuation nasal 2 spray intranasal DAILY #17 grams 09/05/22 spray spironolactone 25 mg tablet 25 mg PO DAILY #90 tabs 11/28/22 cyclobenzaprine 10 mg tablet 10 mg PO TID PRN muscle spasm #20 12/04/22 tabs Allergies Allergy/AdvReac Type Severity Reaction Status Date / Time doxycycline Allergy Intermediate Rash Verified 11/03/22 10:45 gluten Allergy Unverified 11/03/22 10:45 amlodipine AdvReac leg Verified 11/03/22 10:45 swelling banana AdvReac Other (See Verified 11/03/22 10:45 Comment) General Stated Complaint: Nk/Back Pain ROSS: 3 Review of Systems Constitutional Constitutional: Denies chills and Denies fever(s) Cardiovascular Cardiovascular: Denies chest pain and Denies dyspnea on exertion Respiratory Respiratory: Denies cough and Denies dyspnea on exertion Gastrointestinal Gastrointestinal: Denies abdominal pain, Denies change in bowel habits, Denies diarrhea, Denies nausea and Denies vomiting Genitourinary Genitourinary: Denies urinary incontinence Musculoskeletal Musculoskeletal: Reports as per HPI and Reports back pain Neurologic Neurologic: Denies sensory deficit PFSH All Active Problems (Updated 12/04/22 @ 11:50 by Paramjit Christine NP) Acute back pain with sciatica (Acute) Essential hypertension (Chronic) Hepatic steatosis (Chronic) Prediabetes (Chronic) Internal derangement of left knee (Acute) Status post knee arthroscopy DOS: 02/10/2020 Obesity (Chronic) GERD (gastroesophageal reflux disease) (Chronic) Allergic rhinitis (Chronic) Medical History Basal cell carcinoma Right Cheek COVID-19 virus infection (~07/2020) July 2020 and February 2022 Hyperlipidemia Iron deficiency anemia due to chronic blood loss Kidney stone on left side Menorrhagia with regular cycle S/p ablation Surgical History History of bilateral tubal ligation (05/11/03) History of section (05/11/03) 04/16/94 and 05/11/03 S/P endometrial ablation (11/28/18) S/P left knee arthroscopy (02/10/20) Status post cholecystectomy (~2006) Family History Mother Basal cell carcinoma Type 2 diabetes mellitus Hypertension Father Depression Type 2 diabetes mellitus Hypertension Brother Asthma Brother No problems noted. Son Asthma Depression Son No problems noted. Maternal Grandfather Skin cancer Type 2 diabetes mellitus Hypertension Maternal Grandmother Skin cancer Hypertension Type 2 diabetes mellitus Brain cancer Paternal Grandfather No problems noted. Paternal Grandmother Skin cancer Social History Smoking/Tobacco Use Status: Former Tobacco Use Quit Date: 05/22/01 Pack-years: 20 Tobacco: How many years used: 8 Second Hand Exposure: Yes Smoking risk assessment performed?: Yes Alcohol Intake: current Alcohol Intake frequency: holidays/special occasions only Alcohol type: beer Drug use: Never Substance use type: does not use Caregiver/Support person: No Household members: spouse, family, children and other Details: [id number] Housing: house Communication Needs: None and Corrective Lenses Do you need help understanding health information?: Never current occupation: [employer] Pets and animals: Yes Pets and animals: cat(s) and dog(s) Sexually active: Yes Do you think of yourself as: straight/heterosexual Current gender identity: female What is your relationship status?: How often do you talk on the phone with friends or family?: three or more times per week How often do you get together with friends or relatives?: once per week How often do you attend latter-day or confucianist services?: 4 or more times per year Do you belong to any clubs or organized social groups?: no Panel score (0-1 are the most socially isolated patients): 3 What type of physical activity do you participate in: walking Duration: 60-90 minutes/day Frequency: 3-4 times per week [place]/Spiritism: Gnosticism Special [place] needs: No Seatbelt use: sometimes Helmet use: No Drive intox or ride w/intox nascar driver: No Do you feel safe at home: Yes Do you feel safe in your relationship?: Yes Female Reproductive History Menstrual control method: permanent sterilization (BTL) History History 3 Para 2 Hx # Term Pregnancies Multiple births Hx # Pregnancies Ectopic pregnancies AB induced Hx Number of Living Children 2 AB spontaneous 1 Exam Const General: cooperative and no acute distress Orientation: alert, awake and oriented x3 Neck Neck: normal visual inspection, full ROM and no meningeal signs Resp Effort & Inspection: normal respiratory effort Auscultation: clear to auscultation bilaterally Cardio Rate: regular rate Rhythm: regular rhythm Heart Sounds: S1 normal and S2 normal GI Palpation: no hepatosplenomegaly, no aortic enlargement, no masses and no pulsatile masses Back/Spine/Pelvis Thoracic/Lumbar Spine: pain with thoraco-lumbar ROM and thoraco-lumbar ROM limited Pelvis: no pain with anterior-posterior compression, no pain with lateral compression, buttock tenderness on the right and sciatic notch tenderness on the right Neuro General: patient alert, patient awake and patient oriented x3 DTR's: Rt Patellar: 1+, Lt Patellar: 2+, Rt Ankle: 1+ and Lt Ankle: 2+ Course Vital Signs Vital signs: Vital Signs Temperature 37.2 C 12/04/22 09:47 Pulse 77 12/04/22 09:47 Respiratory Rate 18 12/04/22 09:47 Blood Pressure 149/99 H 12/04/22 09:47 Pulse Oximetry 97 12/04/22 09:47 Temperature 37.2 C 12/04/22 09:47 Pulse 77 12/04/22 09:47 Respiratory Rate 18 12/04/22 09:47 Respiratory Effort Normal, Non-Labored 12/04/22 09:49 Blood Pressure 149/99 H 12/04/22 09:47 Pulse Oximetry 97 12/04/22 09:47 Oxygen Delivery Method Room Air 12/04/22 09:47 Oxygen Flow Rate 0 12/04/22 09:47
[2022-12-04] MEDS: methylPREDNISolone ACETATE 80 MG/ML VIAL IM (12:18)
[2022-12-04] MEDS: Ketorolac 15 MG/ML VIAL IVP (12:18)
== END 2022-12-04 12:22 | disposition home or self-care (01) ==
PROVIDERS: Emergency Provider Nurse Practitioner Family; PCP Nurse Practitioner Family
DX: M54.31 Sciatica, right side (principal); M54.59 Other low back pain
CPT/HCPCS: 96372; 96374; 99284; J1040; J1885

== ENCOUNTER 2023-03-01 11:24 | Outpatient (CLI) | payer BC, SELFPAY ==
[2023-03-01 12:44] LABS: ALT 31 U/L (14-59); AST 15 U/L (15-37); Albumin 3.9 g/dL (3.4-5.0); Alkaline Phosphatase 76 U/L (46-116); Anion Gap 9.5 mmol/L (3-11); BUN 20 mg/dL (7-18); Bilirubin, Total 0.5 mg/dL (0.2-1.0); CO2 25.5 mmol/L (21.0-32.0); CREATININE 0.8 mg/dL (0.55-1.02); Calculated LDL 110 mg/dL (<100); Chloride 101 mmol/L (98-107); Cholesterol 200 mg/dL (<200); Glucose 111 mg/dL (74-106); HDL Cholesterol 48 mg/dL (40-60); Potassium 3.9 mmol/L (3.5-5.1); Sodium 136 mmol/L (136-145); Total Protein 8.4 g/dL (6.4-8.2); Triglyceride 212 mg/dL (<150)
[2023-03-01 12:50] LABS: Hemoglobin A1C 6.3 % (<5.7)
== END 2023-03-01 11:25 | disposition home or self-care (01) ==
LOC: LOS 11:24
PROVIDERS: PCP Nurse Practitioner Family; Referring Provider Nurse Practitioner Family; Visit Provider Nurse Practitioner Family
DX: Z00.00 Encounter for general adult medical examination without abnormal findings (principal); I10 Essential (primary) hypertension; E66.9 Obesity, unspecified; R73.03 Prediabetes; K76.0 Fatty (change of) liver, not elsewhere classified
CPT/HCPCS: 36415; 80053; 80061; 83036

== ENCOUNTER 2023-03-20 12:25 | Emergency (ER) | payer BC, SELFPAY ==
[2023-03-20 12:28] VITALS: BP 186/77; PULSE 95; RESP 18; TEMP 36.6; O2SAT 99
--- NOTE | 2023-03-20 12:30 | RT.EKG_ITS ---
APPROVED REPORT Exam: Resting ECG Reason for Exam: palpitations Patient Location: E HR:89 bpm ECG Measurements Heart Rate 89 AXIS IL 177 P 64 QRSd 94 QRS 40 QT 376 T 48 QTc 459 Conclusion Sinus rhythm...normal P axis, V-rate 60- 99 Probable left atrial enlargement...P >50mS, <-0.10mV V1
--- NOTE | 2023-03-20 12:38 | W.ED.GENAD ---
Discharge Plan Disposition Patient Disposition: Home Discharge Details Clinical Impression: Vasovagal near-syncope Primary Care Provider: Mavis Camp ED Provider: Tesfaye Kemp Home Meds and New Rx's Prescriptions: Continued loratadine 10 mg tablet 10 mg PO DAILY spironolactone 50 mg tablet 50 mg PO DAILY Qty: 90 3RF hydrochlorothiazide 25 mg tablet 25 mg PO DAILY Qty: 90 3RF losartan 100 mg tablet 100 mg PO DAILY Qty: 90 3RF omeprazole 20 mg capsule,delayed release(DR/EC) 20 mg PO DAILY Qty: 90 3RF Rx Instructions: Take 1 tablet once a day 30-60 minutes before breakfast mometasone 50 mcg/actuation spray,non-aerosol 2 spray АЛЕКСАНДР DAILY Qty: 17 4RF Rx Instructions: 2 sprays each nostril once a day Discharge Instructions Instructions: Syncope (ED) Additional Instructions: You were seen in the emergency department for your palpitations with chest pressure, your thorough work-up shows no signs of cardiac damage, your EKG is normal, there is no abnormality on her chest x-ray or CT of your head. Your electrolytes are all within normal limits, you are not anemic. Is possible that you had mild dehydration that was too mild for labs to show, you may have had a stress related reaction or anxiety attack or vasovagal near syncope. Please talk with your primary care provider about getting better control of your hypertension, at this time also discussed today's visit with primary care and seek a referral for baseline cardiology studies of echocardiogram and possible treadmill stress test. Please return to the ED for any further bouts of chest pain or other emergent concerns. Referrals: [facility] [Provider Group] Mavis Camp NP [Primary Care Provider] - Medical Decision Making This chart utilizes [id number] dictation software and may contain unedited grammatical errors. 47 presents to ED today with a chief complaint of near-syncope with chest pressure, palpitations/tachycardia, and dizziness. 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 Patient has relevant history of HTN, GERD, obesity, pre-diabetes, and anemia. Family and social history: HTN, denies known FHx of cardiac disease. Pertinent exam findings / vital signs include regular rate/rhythm, neurologically intact, benign abdomen, nontoxic vitals, hypertensive to 186/77 on arrival. Differential / pathologies of concern include PE, CAD/ACS, anxiety, GERD, anemia, dehydration, vasovagal syncope. Less likely to be ICH. Diagnostic studies of: -EKG, CBC, CMP, lipase, magnesium, BNP, troponin with 3-hour delta, D-dimer (negative) > CXR, and CT Head wo contrast, UA added to check for proteinuria in uncontrolled HTN. -EKG shows sinus rhythm at 89 bpm with P waves followed by narrow complex QRS, normal axis deviation, good R wave progression, no ST elevations or reciprocal depressions, no S1Q3T3, no Q waves, normal QTc. -Labs show initial trop I negative, D-dimer negative, CBC benign, CMP benign, Mg++ WNL, lipase negative, BNP negative, CT Head without ICH or mass, CXR clear of any pathology. -3 hr trop I negative -UA shows no proteinuria with her poorly controlled HTN. Interventions of: -324mg ASA, PRN SL nitro- held due to low acuity of chest pain on arrival, consideration for GI cocktail after ACS ruleout, 1L IV NS Bolus. ED Course: Patient stable throughout visit, not requiring any active intervention beyond prophylactic 324mg ASA. Findings not consistent with acute coronary syndrome, negative delta trop's, NOT consistent with PE- d-dimer negative, NOT consistent with PNA - CXR clear, no cough, NOT consistent with anemia- HgB WNL, NOT consistent with arrhythmia- EKG benign. Possible diagnosis of vasovagal syncope, or anxiety. HEART score- low risk, reasonable to follow-up with PCP for referral to Cardiology. Disposition of vasovagal near-syncope. Assessment/Plan: 47-year-old female had episode of palpitations with some chest pressure and headache a couple hours prior to arrival, she has no known cardiac history and does have poorly controlled hypertension, her laboratory work-up is benign with negative delta troponins and no signs of endorgan damage from uncontrolled hypertension, negative for PE, I suspect vasovagal syncope or near syncope. She has a low risk heart score which makes outpatient follow-up reasonable. Patient verbalized understanding of the plan and return to ED criteria and engaged in shared decision making. Medical Records Medical records reviewed: Yes I reviewed the patient's medical records. Imaging Data Radiologic Study: Imaging: CT Scan My impression: No ICH. Radiologist's impression: EXAM: CT HEAD WO CLINICAL HISTORY: Headache, near syncope. TECHNIQUE: Imaging Protocol: Axial computed tomography images with coronal and sagittal reformatted images were created and reviewed COMPARISON: No exams were available for comparison FINDINGS: Ventricles and Extra axial spaces: Normal in size and morphology for the patient's age. Hemorrhage: None. Cerebral parenchyma: No evidence of acute infarct or mass. Midline shift: None. Brainstem/Cerebellum: Normal. Calvarium: Normal. Visualized Paranasal sinuses/Mastoids: Mucous retention in left maxillary sinus and a few ethmoid sinuses as well as left sphenoid sinus. Soft Tissues: Unremarkable. IMPRESSION: No acute intracranial process. Radiologic Study #2: Imaging: X-Ray My impression: No PTX, no PNA, no cardiomegaly, no acute abnormality. Radiologist's impression: EXAM: XR CHEST 2V PA LATERAL CLINICAL HISTORY: chest pain TECHNIQUE: 2D digital imaging was performed. COMPARISON: No exams were available for comparison FINDINGS: HEART: Normal size. Aorta: Not dilated. PULMONARY VASCULATURE: Normal. LUNGS: Clear. PLEURAL SPACE: No pleural effusion or pneumothorax. BONE:Unremarkable for age. IMPRESSION: No acute abnormality. Lab Data Lab results reviewed: Yes I reviewed the patient's lab results. Labs: Laboratory Tests Range/Units 03/20/23 03/20/23 03/20/23 12:55 14:01 14:37 WBC Cancelled 9.00 RBC Cancelled 4.79 Hgb Cancelled 13.9 Hct Cancelled 40.5 MCV Cancelled 85 MCH Cancelled 29.0 MCHC Cancelled 34.3 RDW Cancelled 12.7 Plt Count Cancelled 287 MPV Cancelled 9.9 Immature Gran % Cancelled 0.3 Neutrophils % Cancelled 77.2 Band Neutrophils % Cancelled Lymphocytes % Cancelled 15.2 Atypical Lymphs % Cancelled Monocytes % Cancelled 5.1 Eosinophils % Cancelled 1.8 Basophils % Cancelled 0.4 Metamyelocytes % Cancelled Myelocytes % Cancelled Promyelocytes % Cancelled Other Cells % Cancelled Nucleated RBC % Cancelled 0.0 Absolute Neutrophils Cancelled 6.94 H Absolute Lymphocytes Cancelled 1.37 Absolute Monocytes Cancelled 0.46 Absolute Eosinophils Cancelled 0.16 Absolute Basophils Cancelled 0.04 RBC Morphology Cancelled Polychromasia Cancelled Hypochromasia Cancelled Poikilocytosis Cancelled Basophilic Stippling Cancelled Anisocytosis Cancelled Microcytosis Cancelled Macrocytosis Cancelled Spherocytes Cancelled Tear Drop Cells Cancelled Ovalocytes Cancelled Stomatocytes Cancelled [place] Bodies Cancelled [place] Cells/Echinocytes Cancelled Acanthocytes (Spur) Cancelled Schistocytes Cancelled D-Dimer (<500) ng/mlFEU 437 Sodium (136-145) mmol/L 137 Potassium (3.5-5.1) mmol/L 3.6 Chloride (98-107) mmol/L 101 Carbon Dioxide (21.0-32.0) mmol/L 25.0 Anion Gap (3-11) mmol/L 11.0 BUN (7-18) mg/dL 13 Creatinine (0.55-1.02) mg/dL 0.9 Est GFR (CKD-EPI 2020) (mL/min/1.73m2) 79.35 Glucose (74-106) mg/dL 114 H Calcium (8.5-10.1) mg/dL 9.6 Magnesium (1.8-2.4) mg/dL 1.9 Total Bilirubin (0.2-1.0) mg/dL 0.4 AST (15-37) U/L 21 ALT (14-59) U/L 29 Alkaline Phosphatase (46-116) U/L 80 Troponin I (<or=60) ng/L < 50 NT-Pro-B Natriuret Pep (<300) pg/mL 15 Total Protein (6.4-8.2) g/dL 8.3 H Albumin (3.4-5.0) g/dL 4.0 Lipase (16-77) U/L 22 Urine Color (Yellow) Yellow Urine Clarity (Clear) Clear Urine pH (5-8) 6.5 Ur Specific [place] (1.005-1.025) 1.010 Urine Protein (Negative) mg/dL Negative Urine Ketones (Negative) mg/dL Negative Urine Blood (Negative) Negative Urine Nitrite (Negative) Negative Urine Bilirubin (Negative) Negative Urine Urobilinogen (Up to 0.2) mg/dL 0.2 Ur Leukocyte Esterase (Negative) Negative Urine Glucose (Negative) mg/dL Negative Range/Units 03/20/23 15:33 WBC RBC Hgb Hct MCV MCH MCHC RDW Plt Count MPV Immature Gran % Neutrophils % Band Neutrophils % Lymphocytes % Atypical Lymphs % Monocytes % Eosinophils % Basophils % Metamyelocytes % Myelocytes % Promyelocytes % Other Cells % Nucleated RBC % Absolute Neutrophils Absolute Lymphocytes Absolute Monocytes Absolute Eosinophils Absolute Basophils RBC Morphology Polychromasia Hypochromasia Poikilocytosis Basophilic Stippling Anisocytosis Microcytosis Macrocytosis Spherocytes Tear Drop Cells Ovalocytes Stomatocytes [place] Bodies [place] Cells/Echinocytes Acanthocytes (Spur) Schistocytes D-Dimer (<500) ng/mlFEU Sodium (136-145) mmol/L Potassium (3.5-5.1) mmol/L Chloride (98-107) mmol/L Carbon Dioxide (21.0-32.0) mmol/L Anion Gap (3-11) mmol/L BUN (7-18) mg/dL Creatinine (0.55-1.02) mg/dL Est GFR (CKD-EPI 2020) (mL/min/1.73m2) Glucose (74-106) mg/dL Calcium (8.5-10.1) mg/dL Magnesium (1.8-2.4) mg/dL Total Bilirubin (0.2-1.0) mg/dL AST (15-37) U/L ALT (14-59) U/L Alkaline Phosphatase (46-116) U/L Troponin I (<or=60) ng/L < 50 NT-Pro-B Natriuret Pep (<300) pg/mL Total Protein (6.4-8.2) g/dL Albumin (3.4-5.0) g/dL Lipase (16-77) U/L Urine Color (Yellow) Urine Clarity (Clear) Urine pH (5-8) Ur Specific [place] (1.005-1.025) Urine Protein (Negative) mg/dL Urine Ketones (Negative) mg/dL Urine Blood (Negative) Urine Nitrite (Negative) Urine Bilirubin (Negative) Urine Urobilinogen (Up to 0.2) mg/dL Ur Leukocyte Esterase (Negative) Urine Glucose (Negative) mg/dL HPI General Date/Time Provider Initiated Documentation: 03/20/23 12:30. 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 Quality described as dull pressure in L chest, sharp shooting headache, and mild nausea, no radiation to visual changes, diaphoresis, fever, recent URI, vomiting, slurred speech, syncope, hemoptysis. Severity is described as 4-5/10 at onset, 1-2/10 currently. Palliating factors include nothing specific, minor dull ache in chest still present on arrival. Provoking factors include non-exertional. Events leading up to the incident/Associated Symptoms: Patient is on three anti-hypertensives and denies any known cardiac disease. Patient not anticoagulated. Related Data Home Medications Medication Instructions Recorded Confirmed loratadine 10 mg tablet 10 mg PO DAILY 10/05/20 03/20/23 mometasone 50 mcg/actuation nasal 2 spray intranasal DAILY #17 grams 09/05/22 03/20/23 spray hydrochlorothiazide 25 mg tablet 25 mg PO DAILY #90 tabs 03/01/23 03/20/23 losartan 100 mg tablet 100 mg PO DAILY #90 tabs 03/01/23 03/20/23 omeprazole 20 mg capsule,delayed 20 mg PO DAILY heartburn #90 caps 03/01/23 03/20/23 release spironolactone 50 mg tablet 50 mg PO DAILY #90 tabs 03/01/23 03/20/23 Previous Rx's Medication Instructions Recorded mometasone 50 mcg/actuation nasal 2 spray intranasal DAILY #17 grams 09/05/22 spray hydrochlorothiazide 25 mg tablet 25 mg PO DAILY #90 tabs 03/01/23 losartan 100 mg tablet 100 mg PO DAILY #90 tabs 03/01/23 omeprazole 20 mg capsule,delayed 20 mg PO DAILY heartburn #90 caps 03/01/23 release spironolactone 50 mg tablet 50 mg PO DAILY #90 tabs 03/01/23 Allergies Allergy/AdvReac Type Severity Reaction Status Date / Time doxycycline Allergy Intermediate Rash Verified 03/20/23 12:38 gluten Allergy Unverified 03/20/23 12:38 amlodipine AdvReac leg Verified 03/20/23 12:38 swelling banana AdvReac Other (See Verified 03/20/23 12:38 Comment) General Stated Complaint: Palpitatns ROSS: 3 Review of Systems All systems reviewed & are unremarkable except as noted in HPI and below PFSH All Active Problems (Updated 03/20/23 @ 16:39 by LUCIAN Ren) Vasovagal near-syncope (Acute) Infected sebaceous cyst of skin (Acute) Essential hypertension (Chronic) Hepatic steatosis (Chronic) Prediabetes (Chronic) Obesity (Chronic) GERD (gastroesophageal reflux disease) (Chronic) Allergic rhinitis (Chronic) Medical History Basal cell carcinoma Right Cheek COVID-19 virus infection (~07/2020) July 2020 and February 2022 Hyperlipidemia Iron deficiency anemia due to chronic blood loss Kidney stone on left side Menorrhagia with regular cycle S/p ablation Surgical History History of bilateral tubal ligation (05/11/03) History of section (05/11/03) 04/16/94 and 05/11/03 S/P endometrial ablation (11/28/18) S/P left knee arthroscopy (02/10/20) Status post cholecystectomy (~2006) Family History (Updated 03/01/23 @ 11:28 by Mavis Camp NP) Mother Basal cell carcinoma Type 2 diabetes mellitus Hypertension Chronic kidney disease Father Depression Type 2 diabetes mellitus Hypertension Brother Asthma Brother No problems noted. Son Asthma Depression Son No problems noted. Maternal Grandfather Skin cancer Type 2 diabetes mellitus Hypertension Maternal Grandmother Skin cancer Hypertension Type 2 diabetes mellitus Brain cancer Paternal Grandfather No problems noted. Paternal Grandmother Skin cancer Social History (Updated 03/06/23 @ 11:31 by Iliana Huizar) Smoking/Tobacco Use Status: Former Tobacco Use tobacco type: cigarettes Quit Date: 05/22/01 Pack-years: 20 Tobacco: How many years used: 8 Second Hand Exposure: Yes Smoking risk assessment performed?: Yes Alcohol Intake: current Alcohol Intake frequency: holidays/special occasions only Alcohol type: other Drug use: Never Substance use type: does not use Adopted: No Caregiver/Support person: No Foster care: No Household members: spouse, family, children and other Details: [id number] Housing: house Number of Children: 2 number of grandchildren: 0 Communication Needs: None and Corrective Lenses Education Level: high school Do you need help understanding health information?: Never 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 Pets and animals: Yes Pets and animals: cat(s) and dog(s) Sexually active: Yes Do you think of yourself as: straight/heterosexual Current gender identity: female What is your relationship status?: How often do you talk on the phone with friends or family?: three or more times per week How often do you get together with friends or relatives?: three or more times per week How often do you attend episcopal or adventist services?: 4 or more times per year Do you belong to any clubs or organized social groups?: yes Panel score (0-1 are the most socially isolated patients): 4 What type of physical activity do you participate in: walking Duration: 60-90 minutes/day Frequency: 3-4 times per week [place]/Protestant: Shinto Special enid needs: No Seatbelt use: sometimes Drive intox or ride w/intox auto driver: No Working smoke detector in home: Yes Carbon monox detector in home: Yes Firearms in home: Yes Firearms unloaded and locked: Yes Do you feel safe at home: Yes Do you feel safe in your relationship?: Yes Victim of physical abuse: No Victim of emotional abuse: No Victim of sexual abuse: No Would you like helpful sources: No Female Reproductive History Menstrual control method: permanent sterilization (BTL) History History 3 Para 2 Hx # Term Pregnancies Multiple births Hx # Pregnancies Ectopic pregnancies AB induced Hx Number of Living Children 2 AB spontaneous 1 Exam Narrative Exam Narrative: GENERAL APPEARANCE: Obese, non-toxic, awake and alert, atraumatic, no acute distress. SKIN: Warm, pink, dry, intact, without rashes/lesions/ulcerations. HEAD: Normocephalic, atraumatic, normal hair distribution for gender/age. EYES: Pupils PERRLA, EOMs intact without nystagmus, normal conjunctiva, vision grossly normal, no hyphema, no discharge at medial/lateral canthus, no exudates on lids/lashes. ENT: Nares patent, no facial swelling or erythema, no circumoral cyanosis. NECK: Supple, trachea midline, no cervical lymphadenopathy, painless cervical ROM. LUNGS/CHEST: Lungs clear to auscultation bilaterally, non-labored respirations, normal A/P diameter, symmetrical expansion, no chest wall deformity, no tenderness to palpation. HEART (CV/PV): Regular rate and rhythm, normal s1/s2, no murmurs/rubs/gallops/thrills/heaves on auscultation or palpation, no peripheral edema, no carotid bruit, no JVD, no pulsatile abdominal mass, pulses 2+ in all extremities. ABDOMEN: Soft, non-tender to light and deep palpation, non-distended, no guarding, no rebound tenderness, no CVA tenderness, no masses/pulsations/organomegaly. MSK: Normal ROM, strength 5/5, moving all extremities without weakness, no cyanosis, spine midline, no step offs, normal curvature. NEURO: Mental Status AAOx4 - alert to person, place, time, events Cranial Nerves CN II-XII intact - no facial droop, no forehead involvement, cerebellar testing shows no dysmetria with [id number], heel-molina, or repetitive motion. Motor: No focal weakness - strength 5/5 in proximal and distal bilateral UEs and LEs, symmetrical, moving against gravity without issue, DTR?s symmetric and present in bilateral UEs and LEs, no pronator drift. Sensory: Sensation grossly intact, two point discrimination intact, sensation to light-touch intact globally. Gait: normal, non-antalgic, able to ambulate on both heels and toes without deficit, able to hop on one foot bilaterally, patient ambulated without issue into ED room, Romberg absent PSYCH: euthymic, cooperative, pleasant, appropriate speech. Course Vital Signs Vital signs: Vital Signs Temperature 36.6 C 03/20/23 12:28 Pulse 95 H 03/20/23 12:28 Respiratory Rate 18 03/20/23 12:28 Blood Pressure 186/77 H 03/20/23 12:28 Pulse Oximetry 99 03/20/23 12:28 Temperature 36.6 C 03/20/23 12:28 Temperature Source Temporal Artery Scan 03/20/23 12:28 Pulse 95 H 03/20/23 12:28 Respiratory Rate 18 03/20/23 12:28 Respiratory Effort Normal 03/20/23 12:32 Blood Pressure 186/77 H 03/20/23 12:28 Blood Pressure Position Sitting 03/20/23 12:28 Pulse Oximetry 99 03/20/23 12:28 Oxygen Delivery Method Room Air 03/20/23 12:28 Oxygen Flow Rate 0 03/20/23 12:28 Pain Level 1 03/20/23 12:28 PAWSS Have you Been Recently Intoxicated or Drunk Within the Last 30 days?: No Have you Ever Experienced Previous Episodes of Alcohol Withdrawal?: No Have you ever Experienced Withdrawal Seizures?: No Have you ever Experienced Delirium Tremens(DT)s?: No Have you ever undergone Alcohol Rehabilitation Treatment (i.e, inpt ot outpatient treatment programs)?: No Have you ever Experienced Blackouts?: No Have you ever Combined Alcohol with other Downers within the last 90 days?: No Have you ever Combined Alcohol with any other Substance of Abuse during the last 90 days?: No Result: 0
[2023-03-20 12:42] VITALS: PULSE 93; RESP 14; O2SAT 99
--- NOTE | 2023-03-20 12:45 | DI.CT_ITS ---
Exam(s) CT HEAD WO EXAM: CT HEAD WO CLINICAL HISTORY: Headache, near syncope. TECHNIQUE: Imaging Protocol: Axial computed tomography images with coronal and sagittal reformatted images were created and reviewed COMPARISON: No exams were available for comparison FINDINGS: Ventricles and Extra axial spaces: Normal in size and morphology for the patient's age. Hemorrhage: None. Cerebral parenchyma: No evidence of acute infarct or mass. Midline shift: None. Brainstem/Cerebellum: Normal. Calvarium: Normal. Visualized Paranasal sinuses/Mastoids: Mucous retention in left maxillary sinus and a few ethmoid sin uses as well as left sphenoid sinus. Soft Tissues: Unremarkable. IMPRESSION: No acute intracranial process. RADIATION DOSE DELIVERED: Total DLP DATA REPOSITORY: All CT scans at this facility are submitted to the National Radiology Data Registry (NRDR) Dose Index Registry (DIR) with the [employer] (ACR). RADIATION OPTIMIZATION: All CT scans at this facility use at least one of these dose optimization te chniques: automated exposure control; mA and/or kV adjustment per patient size (includes targeted exa ms where dose is matched to clinical indication); or iterative reconstruction.
[2023-03-20 12:50] VITALS: PULSE 97; RESP 11; O2SAT 98
[2023-03-20] MEDS: Aspirin 81 MG CHEW 324 MG CH (12:50)
[2023-03-20 12:51] VITALS: BP 167/68; PULSE 93; PULSE 95; RESP 12; O2SAT 97
[2023-03-20] MEDS: Normal Saline 1,000 ML 1000 ML IV (12:51)
[2023-03-20 13:00] VITALS: PULSE 88; RESP 11; O2SAT 97
[2023-03-20 13:18] LABS: Lipase 22 U/L (16-77)
[2023-03-20 13:27] LABS: ALT 29 U/L (14-59); AST 21 U/L (15-37); Alkaline Phosphatase 80 U/L (46-116); BUN 13 mg/dL (7-18); Bilirubin, Total 0.4 mg/dL (0.2-1.0); CREATININE 0.9 mg/dL (0.55-1.02); Calcium 9.6 mg/dL (8.5-10.1); Chloride 101 mmol/L (98-107); Estimated GFR 79.35 (mL/min/1.73m2); Glucose 114 mg/dL (74-106); Magnesium 1.9 mg/dL (1.8-2.4); NT-proBNP 15 pg/mL (<300); Potassium 3.6 mmol/L (3.5-5.1); Sodium 137 mmol/L (136-145); Total Protein 8.3 g/dL (6.4-8.2); Troponin I < 50 ng/L (<or=60)
--- NOTE | 2023-03-20 13:30 | DI.RAD_ITS ---
Exam(s) XR CHEST 2V PA LATERAL EXAM: XR CHEST 2V PA LATERAL CLINICAL HISTORY: chest pain TECHNIQUE: 2D digital imaging was performed. COMPARISON: No exams were available for comparison FINDINGS: HEART: Normal size. Aorta: Not dilated. PULMONARY VASCULATURE: Normal. LUNGS: Clear. PLEURAL SPACE: No pleural effusion or pneumothorax. BONE:Unremarkable for age. IMPRESSION: No acute abnormality. DATA REPOSITORY: RADIATION DOSE DELIVERED:
[2023-03-20 13:33] LABS: D-Dimer 437 ng/mlFEU (<500)
[2023-03-20 14:09] LABS: Abs Immature Grans 0.03 10^3/uL (0.0-0.06); Absolute Basophil Count 0.04 10^3/uL (0.0-0.2); Absolute Eosinophil Count 0.16 10^3/uL (0.0-0.7); Absolute Lymphocyte Count 1.37 10^3/uL (1.2-3.4); Absolute Monocyte Count 0.46 10^3/uL (0.1-0.8); Absolute Neutrophil Count 6.94 10^3/uL (1.2-6.7); Basophils % 0.4; Eosinophils % 1.8; HCT 40.5 % (36.0-46.0); HGB 13.9 g/dL (11.2-15.7); Immature Grans % 0.3; Lymphocytes % 15.2; MCHC 34.3 % (32.0-36.0); MCV 85 fL (80-95); MPV 9.9 fL (8.0-11.0); Monocytes % 5.1; Neutrophils % 77.2; Platelet Count 287 10^3/uL (130-400); RBC 4.79 10^6/uL (3.93-5.22); RDW 12.7 % (11.7-14.6); RDW-SD 38.8 fL
[2023-03-20 15:01] LABS: Bilirubin Negative (Negative); Blood Negative (Negative); Clarity Clear (Clear); Glucose Negative (Negative); Ketones Negative (Negative); Leukocyte Esterase Negative (Negative); Nitrite Negative (Negative); Urobilinogen 0.2 mg/dL (Up to 0.2); pH 6.5 (5-8)
[2023-03-20 16:03] LABS: Troponin I < 50 ng/L (<or=60)
== END 2023-03-20 16:48 | disposition home or self-care (01) ==
PROVIDERS: Emergency Provider Physician Assistant; PCP Nurse Practitioner Family
DX: R55 Syncope and collapse; R05.9 Cough, unspecified; R00.2 Palpitations; I10 Essential (primary) hypertension; K21.9 Gastro-esophageal reflux disease without esophagitis; E66.9 Obesity, unspecified; R73.03 Prediabetes; D64.9 Anemia, unspecified; Z79.899 Other long term (current) drug therapy; R07.9 Chest pain, unspecified; Z68.41 Body mass index [BMI] 40.0-44.9, adult
CPT/HCPCS: 80053; 83690; 93005; 99285; 70450; 71046; 81003; 83735; 83880; 84484; 85025; 85379; 93010

== ENCOUNTER → 2023-03-31 02:55 | Outpatient (CLI) | payer BC, SELFPAY ==
--- NOTE | 2023-03-31 08:49 | DI.MAMMO_ITS ---
Exam(s) MAMMO SCREENING EXAM: MAMMO SCREENING CLINICAL HISTORY: screening,z12.39 TECHNIQUE: Mammograms were interpreted according to the usual protocol including computer analysis w [employer] CAD system, tomosynthesis and C-view imaging. COMPARISON: 2018 through 2021 FINDINGS: The breasts are composed of scattered fibroglandular densities, Breast Density category B. No suspicious masses or suspicious microcalcifications are seen. No skin thickening or abnormal axillary lymph nodes are seen. There has been no significant change from prior exams. IMPRESSION: BI-RADS Category 1, Negative mammogram Yearly screening mammography is recommended. Breast Density - Category B, scattered fibroglandular densities. A negative radiographic report should not delay biopsy if a dominant or clinically suspicious mass is present. Up to ten percent of cancers are not identified on mammography. A negative report may reinforce clinical impression. Adenosis and dense breasts may obscure an underlying neoplasm. False positive reports average 6 to 10%. Patient will receive a letter notifying them of these results.
== END ==
PROVIDERS: PCP Nurse Practitioner Family; Visit Provider Nurse Practitioner Family
DX: Z12.31 Encounter for screening mammogram for malignant neoplasm of breast (principal)
CPT/HCPCS: 77063; 77067

== ENCOUNTER 2023-05-09 17:09 | Outpatient (REF) | payer BC, SELFPAY ==
[2023-05-09 20:51] LABS: Bilirubin Negative (Negative); Blood Large (Negative); Clarity Cloudy (Clear); Glucose Negative (Negative); Ketones Negative (Negative); Leukocyte Esterase Small (Negative); Nitrite Negative (Negative); Specific Gravity 1.025 (1.005-1.025); Urobilinogen 0.2 mg/dL (Up to 0.2)
[2023-05-09 20:57] LABS: RBC >50 HPF (0-2)
[2023-05-09 20:58] LABS: C & S Indicated? Yes
== END 2023-05-09 17:10 | disposition home or self-care (01) ==
LOC: LBN 17:09
PROVIDERS: PCP Nurse Practitioner Family; Visit Provider Nurse Practitioner Family
DX: R39.89 Other symptoms and signs involving the genitourinary system (principal); R82.998 Other abnormal findings in urine
CPT/HCPCS: 87077; 81003; 81015; 87086; 87186

== ENCOUNTER 2023-07-20 05:11 | Outpatient (CLI) | payer BC, SELFPAY ==
[2023-07-20 10:38] LABS: ALT 76 U/L (14-59); AST 32 U/L (15-37); Albumin 3.9 g/dL (3.4-5.0); Alkaline Phosphatase 91 U/L (46-116); Anion Gap 8.9 mmol/L (3-11); BUN 15 mg/dL (7-18); Bilirubin, Total 0.5 mg/dL (0.2-1.0); CO2 30.1 mmol/L (21.0-32.0); CREATININE 1.1 mg/dL (0.55-1.02); Chloride 101 mmol/L (98-107); Estimated GFR 61.98 (mL/min/1.73m2); Glucose 101 mg/dL (74-106); Potassium 4.1 mmol/L (3.5-5.1); Sodium 140 mmol/L (136-145); Total Protein 8.2 g/dL (6.4-8.2)
[2023-07-20 10:41] LABS: Hemoglobin A1C 5.9 % (<5.7)
== END 2023-07-20 05:12 | disposition home or self-care (01) ==
LOC: LBO 05:11
PROVIDERS: PCP Nurse Practitioner Family; Visit Provider Nurse Practitioner Family
DX: E66.01 Morbid (severe) obesity due to excess calories (principal)
CPT/HCPCS: 36415; 80053; 83036

== ENCOUNTER 2024-02-28 17:18 | Outpatient (REF) | payer BC, SELFPAY | END 2024-02-28 17:19 | disposition home or self-care (01) | LOC: LBN 17:18 | PROVIDERS: PCP Nurse Practitioner Family; Visit Provider Physician Assistant | DX: L98.9 Disorder of the skin and subcutaneous tissue, unspecified (principal) | CPT/HCPCS: 87070; 87205 ==

== ENCOUNTER 2024-03-28 11:00 | Outpatient (REF) | payer BC, SELFPAY ==
--- NOTE | 2024-03-28 10:40 | PAPFT_PTH ---
PATIENT: Lety Charles LOC: [facility] U#:[id number] AGE/SX: 48/F ROOM: RE03/28/[address]: Radha Reagan DO : 1975 BED: DIS: 03/28/2024 SPEC #: [id number] RECD: 03/28/24 12:56 STATUS: NAHUM REQ #: [id number] SEJAL: 03/28/24 10:[address]: Radha Reagan DEPT: [facility] Cytology RECD BY: Glenis Foster ENTERED: 03/28/24 12:56 SP TYPE: PAPFT OTHR DR: Mavis Camp, VICE PRESIDENT OF PRODUCT MARKETING Tissues: 1 - CX/ENDOCX FOR PAP SMEARS Procedures: PAP THIN PREP/UVM Screening HPV DNA PROBE Comments: [id number] (HPV 16 & 18/45)
== END 2024-03-28 11:01 | disposition home or self-care (01) ==
LOC: LBN 11:00
PROVIDERS: PCP Nurse Practitioner Family; Visit Provider Obstetrics & Gynecology
DX: R87.610 Atypical squamous cells of undetermined significance on cytologic smear of cervix (ASC-US) (principal)
CPT/HCPCS: 88142; 87624

== ENCOUNTER 2024-04-01 01:43 | Outpatient (CLI) | payer BC, SELFPAY ==
--- NOTE | 2024-04-01 13:10 | DI.MAMMO_ITS ---
Exam(s) MAMMO SCREENING EXAM: MAMMO SCREENING CLINICAL HISTORY: screening,Z12.39 TECHNIQUE: Mammograms were interpreted according to the usual protocol including computer analysis w [employer] CAD system, tomosynthesis and C-view imaging. COMPARISON: 2018 through 2022 FINDINGS: The breasts are composed of scattered fibroglandular densities, Breast Density category B. No suspicious masses or suspicious microcalcifications are seen. No skin thickening or abnormal axillary lymph nodes are seen. There has been no significant change from prior exams. IMPRESSION: BI-RADS Category 1, Negative mammogram Yearly screening mammography is recommended. Breast Density - Category B, scattered fibroglandular densities. A negative radiographic report should not delay biopsy if a dominant or clinically suspicious mass is present. Up to ten percent of cancers are not identified on mammography. A negative report may reinforce clinical impression. Adenosis and dense breasts may obscure an underlying neoplasm. False positive reports average 6 to 10%. Patient will receive a letter notifying them of these results.
== END 2024-04-01 02:03 ==
LOC: DI 01:43
PROVIDERS: PCP Nurse Practitioner Family; Visit Provider Nurse Practitioner Family
DX: Z12.31 Encounter for screening mammogram for malignant neoplasm of breast (principal); R92.323 Mammographic fibroglandular density, bilateral breasts
CPT/HCPCS: 77063; 77067

== ENCOUNTER 2024-09-25 10:34 | Outpatient (REF) | payer BC, SELFPAY | END 2024-09-25 10:35 | disposition home or self-care (01) | LOC: LBN 10:34 | PROVIDERS: PCP Nurse Practitioner Family; Visit Provider Physician Assistant | DX: N39.0 Urinary tract infection, site not specified (principal) | CPT/HCPCS: 87077; 87086; 87186 ==

== ENCOUNTER 2025-01-09 10:09 | Outpatient (CLI) | payer BC, SELFPAY ==
[2025-01-09 12:51] LABS: HCT 42.5 % (36.0-46.0); HGB 14.4 g/dL (11.2-15.7); MCH 28.6 pg (27.0-33.0); MCHC 33.9 % (32.0-36.0); MCV 84 fL (80-95); MPV 10.7 fL (8.0-11.0); Platelet Count 308 10^3/uL (130-400); RBC 5.04 10^6/uL (3.93-5.22); RDW 12.5 % (11.7-14.6); RDW-SD 38.1 fL; WBC 8.08 10^3/uL (4.4-10.8)
[2025-01-09 13:30] LABS: ALT 25 U/L (14-59); AST 14 U/L (15-37); Albumin 3.9 g/dL (3.4-5.0); Alkaline Phosphatase 80 U/L (46-116); Anion Gap 9.1 mmol/L (3-11); BUN 11 mg/dL (7-18); Bilirubin, Total 0.6 mg/dL (0.2-1.0); CO2 27.9 mmol/L (21.0-32.0); Calcium 9.6 mg/dL (8.5-10.1); Calculated LDL 114 mg/dL (<100); Chloride 103 mmol/L (98-107); Cholesterol 199 mg/dL (<200); Estimated GFR 90.27 (mL/min/1.73m2); Glucose 93 mg/dL (74-106); HDL Cholesterol 41 mg/dL (>or=50); Potassium 3.9 mmol/L (3.5-5.1); Sodium 140 mmol/L (136-145); TSH (W/Ref FT4) 1.91 uIU/mL (0.36-3.74); Total Protein 7.7 g/dL (6.4-8.2); Triglyceride 221 mg/dL (<150); Vitamin B12 500 pg/mL (193-986)
[2025-01-09 13:48] LABS: Hemoglobin A1C 5.6 % (<5.7)
[2025-01-09 18:59] LABS: Hepatitis C Ab w Rflx HCV PCR Negative (Negative)
[2025-01-09 19:04] LABS: HBs Antibody, Quant 5.2 mIU/mL (See Note); Hepatitis B Surface Antigen Negative (Negative)
[2025-01-09 20:06] LABS: HIV-1/2 Ag & Ab Screen Negative (Negative)
== END 2025-01-09 10:10 | disposition home or self-care (01) ==
LOC: LOS 10:09
PROVIDERS: PCP Nurse Practitioner Family; Referring Provider Nurse Practitioner Family; Visit Provider Nurse Practitioner Family
DX: Z11.59 Encounter for screening for other viral diseases (principal); R73.03 Prediabetes; K76.0 Fatty (change of) liver, not elsewhere classified; Z11.4 Encounter for screening for human immunodeficiency virus [HIV]; I10 Essential (primary) hypertension; E66.01 Morbid (severe) obesity due to excess calories; K21.9 Gastro-esophageal reflux disease without esophagitis
CPT/HCPCS: 36415; 80053; 80061; 85027; 86704; 86706; 86803; 87340; 87389; 82607; 83036; 84443

== ENCOUNTER 2025-03-10 10:51 | Outpatient (REF) | payer BC, SELFPAY ==
[2025-03-10 18:41] LABS: Glucose Negative (Negative)
[2025-03-10 18:53] LABS: C & S Indicated? Yes; RBC 0-2 HPF (0-2); WBC 20-50 HPF (0-5)
== END 2025-03-10 10:52 | disposition home or self-care (01) ==
LOC: LBN 10:51
PROVIDERS: PCP Nurse Practitioner Family; Visit Provider Nurse Practitioner Family
DX: N30.90 Cystitis, unspecified without hematuria (principal)
CPT/HCPCS: 87077; 81003; 81015; 87086; 87186